=== PATIENT | female | born 1960 | race Caucasian/White ===

== ENCOUNTER 2019-02-10 16:52 | Observation (INO) | payer SELFPAY ==
[~2019-02-10] VITALS: Ht 165.1 cm; Wt 58.5 kg
[2019-02-10] MEDS ORDERED: ASPIRIN 81 MG CHEW TAB PO ONE (17:30)
--- NOTE | 2019-02-10 17:44 | Diagnostic Imaging Report ---
Exam: Head CT without contrast Indication: Right-sided weakness Comparisons: None Technique: Axial images were obtained from the skull base to the vertex. Coronal and sagittal images reconstructed from the axial data. Dose modulation, iterative reconstruction, and/or weight based adjustment of the mA/kV was utilized to reduce the radiation dose to as low as reasonably achievable. Intravenous contrast: None Findings: Scalp/skull: No abnormalities. Extra-axial spaces: No masses. No fluid collections. Brain sulci: Not effaced. Ventricles: Focally dilated left frontal horn. Otherwise, normal size and configuration. Parenchyma: Focal hypodensity involving involving the left subinsular region, lentiform nucleus, and frontal doty radiata. No intracranial hemorrhage. Sellar/suprasellar region: No abnormalities. Craniocervical junction: Patent foramen magnum. No Chiari one malformation. Incidental findings: Atherosclerotic calcifications in the carotid siphons . Suspect sequela of prior left mastoidectomy. Impression: 1. No intracranial hemorrhage, evidence of acute territorial vascular insult, or hydrocephalus. 2. 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 A preliminary report was provided by Dr. Lee on 02/10/2019 5:39 PM. Signed by: Meng Lee MD on 02/10/2019 5:40 PM
[2019-02-10 17:53] LABS: BASOPHILS # (AUTO) 0.1 (0.0-0.1); BASOPHILS % 0.7 % (0.0-1.0); EOSINOPHILS # (AUTO) 0.2 (0.0-0.4); EOSINOPHILS % 1.9 % (0.0-6.0); HEMATOCRIT 42.9 % (34.2-44.1); HEMOGLOBIN 14.3 g/dL (12.0-16.0); LYMPHOCYTES # (AUTO) 3.4 (1.0-3.2); LYMPHOCYTES % 37.5 % (18.0-39.1); MEAN CORPUSCULAR HEMOGLOBIN 32.1 pg (28-32); MEAN CORPUSCULAR HGB CONC 33.3 g/dL (31-35); MEAN CORPUSCULAR VOLUME 96.4 fL (81-99); MONOCYTES # (AUTO) 0.7 (0.2-0.8); MONOCYTES % 7.2 % (4.4-11.3); NEUTROPHILS # (AUTO) 4.8 (2.1-6.9); PLATELET COUNT 293 x10e3/uL (140-360); RED BLOOD COUNT 4.45 x10e6/uL (3.6-5.1); RED CELL DISTRIBUTION WIDTH 13.3 % (11.7-14.4)
[2019-02-10 17:58] LABS: INR 0.88; PROTHROMBIN TIME 12.4 seconds (11.9-14.5)
[2019-02-10] MEDS ORDERED: SODIUM CHLORIDE 0.9% 1000ML 1,000 ML IV SCH (18:00)
[2019-02-10] MEDS ORDERED: LORAZEPAM INJ 2 MG/ML VIAL IV ONE (18:00)
[2019-02-10 18:05] LABS: ALANINE AMINOTRANSFERASE 10 IU/L (0-55); ALBUMIN 3.9 g/dL (3.5-5.0); ALBUMIN/GLOBULIN RATIO 1.1 (0.8-2.0); ALKALINE PHOSPHATASE 52 IU/L (40-150); ANION GAP 12.9 mmol/L (8-16); BLOOD UREA NITROGEN 13 mg/dL (7-26); BUN/CREATININE RATIO 15 (6-25); CALCIUM 10.1 mg/dL (8.4-10.2); CARBON DIOXIDE 25 mmol/L (22-29); CHLORIDE 102 mmol/L (98-107); CREATININE, SERUM 0.85 mg/dL (0.57-1.11); EST GLOMERULAR FILTRATION RATE > 60 ML/MIN (60-); GLUCOSE 117 mg/dL (74-118); POTASSIUM 3.9 mmol/L (3.5-5.1); SODIUM 136 mmol/L (136-145)
[2019-02-10 18:08] LABS: CREATINE KINASE 46 IU/L (29-168)
[2019-02-10] MEDS ORDERED: HYDRALAZINE HCL 20 MG/ML VIAL IV PRN (20:00)
[2019-02-10] MEDS ORDERED: ONDANSETRON HCL INJ 2MG/ML 2ML 2 MG/ML VIAL IV PRN (20:00)
--- OUTSIDE RECORDS SUMMARY | 2019-02-10 20:28 | XMS REPORT | Summary of Care ---
Author Author [facility] Address Unknown Phone Unavailable Encounter [facility] Encntr_zuhair(FIN) [id number] Date(s): 07/16/17 - 08/14/17 [facility] Discharge Disposition: Home or Self Care Attending Physician: Umesh Basurto MD Vital Signs No data available for this section Problem List Condition Effective Dates Status Health Status Informant HTN - Active Hypertension(Confirm ed) Hyperlipidemia(Confi Resolved rmed) MD - Myocardial Resolved infarction(Confirmed ) TIA(Confirmed) Resolved Allergies, Adverse Reactions, Alerts Substance Reaction Severity Status Ativan Active Phenergan Active Medications No data available for this section Results No data available for this section Immunizations No data available for this section Procedures Procedure Date Related Diagnosis Body Site section Cholecystectomy Hysterectomy1 Stent placement Tonsillectomy 1complete per pt Social History Social History Type Response Alcohol Current, Type Beer, Wine. Frequency: 1-2 times per week. Alcohol use interferes with work or home: No. Drinks more than intended: No. Others hurt by drinking: No. Ready to change: No. Household alcohol concerns: No. Smoking Status Current every day smoker; Type: Cigarettes; Previous treatment: None; Ready to change: No; Concerns about tobacco use in household: No; Lives with someone who smokes; Cigarette Smoking Last 365 Days Yes; Reg Smoking Cessation Counseling Yes Assessment and Plan No data available for this section
--- OUTSIDE RECORDS SUMMARY | 2019-02-10 20:28 | XMS REPORT | Continuity of Care Document ---
Author Author [facility] Interface Address Unknown Phone Unavailable Problems Problem Status Onset Date Classification Date Reported Comments Source NECK PAIN Active 07/12/2017 [facility] [place] DX: R20.0=ANESTHESIA OF SKIN Active 01/29/2017 [facility] CHEST PAIN Active 11/30/2015 [facility] Discharge Diagnosis: Pain, dental 07/11/2014 07/13/2014 [facility] TOOTH ACHE Active 07/11/2014 [facility] NON STEMI Active 05/14/2014 [facility] ARM INJURY Active 03/20/2013 [facility] ABDOMINAL LUMP Active 03/20/2013 [facility] HTN - Hypertension Active Problem 08/17/2017 [facility] [place] Hyperlipidemia Resolved Problem 08/17/2017 [facility] [place] [place] - Myocardial infarction Resolved Problem 08/17/2017 [facility] [place] TIA Resolved Problem 08/17/2017 [facility] [place] Mixed hyperlipidemia Active Problem 12/31/2017 [facility] Coronary atherosclerosis of [place] coronary artery Active Problem 12/31/2017 [facility] Essential hypertension Active Diagnosis 12/31/2017 [facility] Normal body mass index Active Problem 12/31/2017 [facility] History of CVA Active Problem 06/19/2017 [facility] Tobacco use Active Problem 12/31/2017 [facility],Gary Dee [place], [place] Transient cerebral ischemia Active Problem 06/19/2017 [facility] Vitamin D deficiency Active Problem 12/31/2017 [facility] History of [place] Active Problem 06/19/2017 [facility] Smoker Active Problem 12/31/2017 [facility] Grade III hemorrhoids Active Problem 06/19/2017 [facility] Diverticulitis of large intestine without perforation or abscess without bleeding Active Problem 06/19/2017 [facility] Neck pain Active Diagnosis 06/13/2017 [facility] Diverticulitis Active Problem 05/07/2015 [facility] Grade III hemorrhoids Active Problem 05/07/2015 [facility] Vitamin d deficiency Active Problem 05/07/2015 [facility] CAD Active Problem 05/07/2015 [facility] Elevated CEA Active Problem 05/07/2015 [facility] CVA Active Problem 05/07/2015 [facility] Nicotine addiction /use ) Active Problem 05/07/2015 [facility] HTN Active Problem 05/07/2015 [facility] Hyperlipidemia Active Problem 05/07/2015 [facility] HTN , benign Active Problem 11/29/2016 [facility] Menopausal state Active Problem 12/31/2017 [facility] Hyperglycemia Active Problem 12/31/2017 [facility] Physical exam Active Diagnosis 12/27/2017 [facility] Dense breast Active Diagnosis 12/27/2017 [facility] Osteopenia of spine Active Diagnosis 12/27/2017 [facility] BMI 21.0-21.9, adult Active Diagnosis 12/27/2017 [facility] Breast cancer screening Active Diagnosis 12/27/2017 [facility] Cataract of left eye, unspecified cataract type Active Diagnosis 12/27/2017 [facility] TIA Active Problem 05/07/2015 [facility] Consumes alcohol weekly Active Diagnosis 05/07/2015 [facility] Hospital discharge follow-up Active Diagnosis 05/07/2015 [facility] Bronchitis Active Diagnosis 10/04/2013 [facility] Encounter for tobacco use cessation counseling Active Diagnosis 12/10/2015 [facility] Breast pain Active Diagnosis 08/21/2013 [facility] Costochondritis Active Diagnosis 08/21/2013 [facility] Numbness in left leg Active Diagnosis 01/31/2017 [facility] Chest pressure Active Diagnosis 01/31/2017 [facility] CAD without angina Active Diagnosis 03/30/2016 [place] [facility], [place] Bruit Active Diagnosis 03/30/2016 Gary Dee MD, [place] Chest pain, unspecified Active Diagnosis 03/30/2016 [place] Dee MD, [place] Peripheral vascular disease, unspecified Active Diagnosis 03/30/2016 Gary Dee MD, [place] PCI status Active Diagnosis 03/30/2016 Gary Dee MD, [place] Pure hypercholesterolemia Active Diagnosis 03/30/2016 Gary Dee MD, PA AMI NOS-EPISODE NOS Active [facility] CHEST PAIN, UNSPECIFIED Active [facility] Medications Medication Details Route Status Patient Instructions Ordering Provider Order Date Source Metoprolol Succinate 1 tablet Orally Active 100 mg Orally once daily [facility] 06/13/2017 [facility] Cyclobenzaprine HCl 1 tablet as needed Orally Active 10 MG Orally one before bedtime daily [place] 06/11/2017 [facility] Naproxen 1 tablet Orally Active 375 MG Orally Twice a day [place] 06/11/2017 [facility] Chantix Starting Month Mark as directed Orally Active 0.5 MG X 11 & 1 MG X 42 Orally as directed [place] 12/08/2015 [facility] Plavix 75 mg, 1 tab, Route: PO, Drug form: TAB, Daily, Dosing Weight 65.114, kg, Start date: 12/02/15 9:00:00, Duration: 30 day, Stop date: 12/31/15 9:00:00Notes: (Same As: Plavix) No Longer Active 12/02/2015 [facility] Atenolol 25 MG Oral Tablet 25 mg, 1 tab, Route: PO, Drug form: TAB, Daily, Dosing Weight 65.114, kg, Start date: 12/02/15 9:00:00, Duration: 30 day, Stop date: 12/31/15 9:00:00Notes: (Same As:Tenormin) No Longer Active 12/02/2015 [facility] Lipitor 40 mg, 1 tab, Route: PO, Drug form: TAB, Bedtime, Dosing Weight 65.114, kg, Start date: 12/01/15 21:00:00, Duration: 30 day, Stop date: 12/30/15 21:00:00Notes: (Same as: Lipitor) Inactive 12/02/2015 [facility] atorvastatin 40 MG Oral Tablet [Lipitor] 40 mg=1 tab, PO, Bedtime, 0 Refill(s) Active 12/01/2015 [facility] Atenolol 50 mg, PO, BID, 0 Refill(s) Active 12/01/2015 [facility] Simvastatin PO, Bedtime, 0 Refill(s) Inactive 12/01/2015 [facility] clopidogrel 75 MG Oral Tablet [Plavix] 75 mg=1 tab, PO, Daily, # 30 tab, 0 Refill(s) Active 12/01/2015 [facility] Saline Flush 0.9% 10 ml, Route: IVP, Drug Form: INJ, Dosing Weight 59.091, kg, Q12H, Start date: 11/30/15 21:00:00, Duration: 30 day, Stop date: 12/30/15 9:00:00Notes: (Same as: BD Posiflush) No Longer Active 12/01/2015 [facility] Saline Flush 0.9% 10 ml, Route: IVP, Drug Form: INJ, Dosing Weight 59.091, kg, PRN, PRN Line Flush, Start date: 11/30/15 18:50:00, Duration: 30 day, Stop date: 12/30/15 18:49:00Notes: (Same as: BD Posiflush) No Longer Active 12/01/2015 [facility] Nitroglycerin 0.4 mg, 1 tab, Route: SL, Drug form: TAB, Q5Min, Dosing Weight 59.091, kg, PRN Chest Pain, Start date: 11/30/15 18:50:00, Duration: 3 doses or times, Stop date: Limited # of timesNotes: (Same as:Nitr oquick, Nitrostat) "Do Not Crush" Sublingual tablet No Longer Active 12/01/2015 [facility] Aspirin 325 MG Oral Tablet 325 mg, 1 tab, Route: PO, Drug form: TAB, ONCE, Dosing Weight 59.091, kg, Start date: 11/30/15 18:50:00, Stop date: 11/30/15 18:50:00Notes: Take with food. Inactive 12/01/2015 [facility] Acetaminophen 325 MG / Hydrocodone Bitartrate 5 MG Oral Tablet [[place] 5/325] 1-2 tab, PO, Q4-6H, Pain, # 10 tab, 0 Refill(s) Active 07/11/2014 [facility] Penicillin V Potassium 500 MG Oral Tablet 500 mg=1 tab, PO, Q6H, # 40 tab, 0 Refill(s) Active 07/11/2014 [facility] Nitroglycerin 0.4 MG Sublingual Tablet [Nitrostat] 0.4 mg=1 tab, SL, Q5Min, Chest Pain, # 100 tab, 0 Refill(s) Active 05/16/2014 [facility] simvastatin 20 mg oral tablet 20 mg=1 tab, PO, Bedtime, # 30 tab, 0 Refill(s) Active 05/16/2014 [facility] metoprolol tartrate 25 mg oral tablet 25 mg=1 tab, PO, BID, # 60 tab, 0 Refill(s) Active 05/16/2014 [facility] clopidogrel 75 mg oral tablet 75 mg=1 tab, PO, Daily, # 30 tab, 0 Refill(s) Active 05/16/2014 [facility] aspirin 325 mg tablet 325 mg=1 tab, PO, Daily, # 30 tab, 0 Refill(s) Active 05/16/2014 [facility] Plavix 75 mg, 1 tab, Route: PO, Drug form: TAB, Daily, Dosing Weight 59.091, kg, Start date: 05/15/14 9:00:00, Duration: 30 day, Stop date: 06/13/14 9:00:00Notes: (Same As: Plavix) No Longer Active 05/15/2014 [facility] aspirin 325 mg tablet 325 mg, 1 tab, Route: PO, Drug form: TAB, Daily, Dosing Weight 59.091, kg, Start date: 05/15/14 9:00:00, Duration: 30 day, Stop date: 06/13/14 9:00:00Notes: Take with food. No Longer Active 05/15/2014 [facility] clopidogrel 75 mg, Route: PO, Drug form: TAB, Daily, Dosing Weight 61.364, kg, Start date: 05/15/14 9:00:00, Duration: 30 day, Stop date: 06/13/14 9:00:00 No Longer Active 05/15/2014 [facility] Lisinopril 5 mg, 1 tab, Route: PO, Drug form: TAB, Daily, Dosing Weight 61.364, kg, Start date: 05/15/14 9:00:00, Duration: 30 day, Stop date: 06/13/14 9:00:00Notes: (Same as: Prinivil, Zestril) No Longer Active 05/15/2014 [facility] metoprolol tartrate 25 mg, Route: PO, Drug form: TAB, Q12H, Dosing Weight 61.364, kg, Start date: 05/14/14 21:00:00, Duration: 30 day, Stop date: 06/13/14 9:00:00 Inactive 05/15/2014 [facility] Crestor 10 mg, 1 tab, Route: PO, Drug form: TAB, Bedtime, Dosing Weight 59.091, kg, Start date: 05/14/14 21:00:00, Duration: 30 day, Stop date: 06/12/14 21:00:00Notes: (Same As: Crestor) No Longer Active 05/15/2014 [facility] Saline Flush 0.9% 5 ml, Route: IVP, Drug Form: INJ, Dosing Weight 61.364, kg, Q12H, Start date: 05/14/14 21:00:00, Duration: 30 day, Stop date: 06/13/14 9:00:00 Inactive 05/15/2014 [facility] Ambien 5 mg, 1 tab, Route: PO, Drug form: TAB, Bedtime, Dosing Weight 61.364, kg, PRN Insomnia, Start date: 05/14/14 18:37:00, Duration: 30 day, Stop date: 06/13/14 18:36:00Notes: (Same As: Ambien) No Longer Active 05/14/2014 [facility] Saline Flush 0.9% 5 ml, Route: IVP, Drug Form: INJ, Dosing Weight 61.364, kg, PRN, PRN Line Flush, Start date: 05/14/14 18:27:00, Duration: 30 day, Stop date: 06/13/14 18:26:00 Inactive 05/14/2014 [facility] clopidogrel 300 mg, Route: PO, Drug form: TAB, ONCE, Dosing Weight 61.364, kg, Priority: NOW, Start date: 05/14/14 18:27:00, Stop date: 05/14/14 18:27:00 Inactive 05/14/2014 [facility] Morphine 2 mg, 1 mL, Route: IVP, Drug form: INJ, Q15Min, Dosing Weight 61.364, kg, PRN Chest Pain, Start date: 05/14/14 18:27:00, Duration: 2 doses or times, Stop date: Limited # of timesNotes: (Same as:MORPh ine Sulfate) No Longer Active 05/14/2014 [facility] Nitroglycerin 0.4 mg, Route: SL, Drug form: TAB, Q5Min, Dosing Weight 61.364, kg, PRN Chest Pain, Start date: 05/14/14 18:27:00, Duration: 3 doses or times, Stop date: Limited # of times Inactive 05/14/2014 [facility] atropine 0.5 mg, 5 mL, Route: IVP, Drug form: INJ, PRN, PRN Bradycardia, Start date: 05/14/14 15:39:00, Duration: 30 day, Stop date: 06/13/14 15:38:00 No Longer Active 05/14/2014 [facility] eptifibatide 10.6364 mg, 5.32 mL, Route: IV, Drug form: INJ, ONCE, Start date: 05/14/14 11:01:00, Stop date: 05/14/14 11:01:00Notes: (Same as: Integrelin) Inactive 05/14/2014 [facility] eptifibatide 75 mg [2 microgram/kg/min] IV, 9.45 ml/hr, Start date: 05/14/14 11:00:00, Duration: 72, 100 ml, 59.091Notes: (Same as: Integrelin) Final conc=0.75 mg/mL - Premix Bottle No Longer Active 05/14/2014 [facility] eptifibatide 0.75 MG/ML Injectable Solution [Integrilin] 75 mg, 100 mL, Rate: Titrate, Dosing Weight 59.091, kg, Route: IV, Total Volume: 100 mL, Start date: 05/14/14 10:53:00, Duration: 72 hr, Stop date: 05/17/14 10:52:00, Replace Every: 24 hr Inactive 05/14/2014 [facility] Saline Flush 0.9% 5 ml, Route: IVP, Drug Form: INJ, Dosing Weight 59.091, kg, Q12H, Start date: 05/14/14 9:00:00, Duration: 30 day, Stop date: 06/12/14 21:00:00Notes: (Same as: BD Posiflush) No Longer Active 05/14/2014 [facility] metoprolol tartrate 25 mg, 1 tab, Route: PO, Drug form: TAB, Q12H, Dosing Weight 59.091, kg, Start date: 05/14/14 9:00:00, Duration: 30 day, Stop date: 06/12/14 21:00:00Notes: (Same as: Lopressor) No Longer Active 05/14/2014 [facility] Saline Flush 0.9% 5 ml, Route: IVP, Drug Form: INJ, Dosing Weight 59.091, kg, PRN, PRN Line Flush, Start date: 05/14/14 8:52:00, Duration: 30 day, Stop date: 06/13/14 8:51:00Notes: (Same as: BD Posiflush) No Longer Active 05/14/2014 [facility] Morphine 2 mg, 1 mL, Route: IVP, Drug form: INJ, Q4H, Dosing Weight 59.091, kg, PRN Chest Pain, Start date: 05/14/14 8:40:00, Duration: 30 day, Stop date: 06/13/14 8:39:00Notes: (Same as:MORPhine Sulfate) No Longer Active 05/14/2014 [facility] Plavix 600 mg, 2 tab, Route: PO, Drug form: TAB, ONCE, Dosing Weight 59.091, kg, Start date: 05/14/14 8:37:00, Duration: 1 doses or times, Stop date: 05/14/14 8:37:00Notes: ( Same as: Plavix) Inactive 05/14/2014 [facility] Aspirin 325 MG Enteric Coated Tablet 325 mg, 1 tab, Route: PO, Drug form: ECTAB, Q24H, Dosing Weight 61.364, kg, Start date: 05/14/14 6:00:00, Duration: 30 day, Stop date: 06/12/14 6:00:00Notes: (Do Not Crush) Do not crush or chew. Inactive 05/14/2014 [facility] Saline Flush 0.9% 5 ml, Route: IVP, Drug Form: INJ, Dosing Weight 61.364, kg, PRN, PRN Line Flush, Start date: 05/14/14 5:11:00, Duration: 30 day, Stop date: 06/13/14 5:10:00Notes: Same as: BD Posiflush Sterile No Longer Active 05/14/2014 [facility] Nitroglycerin 0.4 mg, 1 tab, Route: SL, Drug form: TAB, Q5Min, Dosing Weight 61.364, kg, PRN Chest Pain, Start date: 05/14/14 5:11:00, Duration: 3 doses or times, Stop date: Limited # of timesNotes: (Same as:Nitro quick, Nitrostat) "Do Not Crush" Sublingual tablet No Longer Active 05/14/2014 [facility] Lovenox 60 mg, 0.6 mL, Route: SUB-Q, Drug form: INJ, ONCE, Dosing Weight 61.364, kg, Priority: STAT, Start date: 05/14/14 3:32:00, Stop date: 05/14/14 3:32:00Notes: Nurse to ensure documentation of patient education per anticoagulation policy. (Same as: Lovenox) Inactive 05/14/2014 [facility] Nitroglycerin 100 mg, 250 mL, Rate: Titrate as Directed, Dosing Weight 61.364, kg, Route: IV, Total Volume: 250 mL, Start date: 05/14/14 2:31:00, Duration: 30 day, Stop date: 06/13/14 2:30:00, Replace Every: 24 hrNot es: (Same as:Tridil) Final conc=0.4 mg/ml. Premix bottle. No Longer Active 05/14/2014 [facility] Morphine 2 mg, Route: IVP, ONCE, Dosing Weight 61.364, kg, Priority: STAT, Start date: 05/14/14 2:31:00, Stop date: 05/14/14 2:31:00 Inactive 05/14/2014 [facility] Morphine 2 mg, Route: IVP, ONCE, Dosing Weight 61.364, kg, Priority: STAT, Start date: 05/14/14 1:00:00, Stop date: 05/14/14 1:00:00 Inactive 05/14/2014 [facility] Bromfed DM 10 ml as needed Orally Active 30-2-10 MG/5ML Orally every 6 hrs [place] 10/02/2013 [facility] Levaquin 1 tablet Orally Active 500 MG Orally Once a day [facility] 10/02/2013 [facility] DexPak 6 Day as directed Orally Active 1.5 MG Orally as directed [facility] 10/02/2013 [facility] Naprosyn 1 tablet as needed Orally Active 500 mg Orally every [address] [facility] 08/05/2013 [facility] Estradiol 1 tablet Orally Active 1 MG Orally daily [facility] 07/09/2013 [facility] Estratest 1 tablet with food Orally No Longer Active 1.25-2.5 MG Orally Daily for Three Weeks, 1 Week off [place] 06/18/2013 [facility] Zetia 1 tablet Orally No Longer Active 10 mg Orally Once a day [facility] 06/18/2013 [facility] Lipitor 1 tablet Orally No Longer Active 80 mg Orally Once a day [facility] 02/28/2013 [facility] Vitamin D as directed Orally Active 73040 U Orally once per week [facility] 02/28/2013 [facility] Tenormin 1 tablet Orally Active 50 mg Orally twice a day (bid) [place] 02/03/2013 [facility] Tenormin 1 tablet Orally Active 50 mg Orally twice a day (bid) [place] 02/03/2013 [facility] Plavix 1 tablet Orally Active 75 MG Orally once a day [facility],Gary Dee [place], [place] Nitroglycerin not defined Sublingual Active 0.4 MG Sublingual [facility],Gary Dee [place], [place] Plavix 1 tablet Orally Active 75 MG Orally once a day [facility] Nitroglycerin not defined Sublingual Active 0.4 MG Sublingual [facility] Metoprolol Tartrate 5 ml Intravenous Active 5 MG/5ML Intravenous every 12 hrs [facility] Atenolol 1 tablet Orally Active 50 mg Orally twice a day (bid) Taty Dee MD, [place] Lipitor 1 tablet Orally Active 80 MG Orally Once a day Taty Dee MD, [place] Aspirin 1 tablet Orally Active 81 MG Orally Once a day Taty Dee MD, [place] Allergies, Adverse Reactions, Alerts Substance Category Reaction Severity Reaction type Status Date Reported Comments Source Ativan Adverse Reaction Info Not Available Adverse Reaction Active 12/28/2017 [facility] Phenergan Assertion Drug allergy Active [facility] [place] Immunizations Immunization Date Given Site Status Last Updated Comments Source Results Order Name Results Value Reference Range Date Interpretation Comments Source Brain wo contrast MRI Brain wo contrast MRI Brain wo contrast MRI CLINICAL INDICATION: R20 Disturbances of skin sensation - Pt. had previous h/o stroke. she felt her leg leg went numb the day before yesterday and since then she said she doesn;t feel it normal and kind of weak. COMPARISON: CT head 03/20/2011 TECHNIQUE: Multiplanar imaging of the brain was performed without IV contrast. 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 No areas of restricted diffusion are visualized to suggest an acute infarct. Mild increase in signal in the periventricular white matter is likely related to chronic ischemic change from small vessel disease. There is no space-occupying lesion, mass effect or midline shift. No extra-axial fluid collection or intraparenchymal hemorrhage. No CP angle mass is visualized. IACs, brainstem and craniocervical junction are unremarkable. VENTRICLES: There is mild dilation of ventricles and subarachnoid spaces but not out of proportion to the underlying cerebral atrophy. VISUALIZED VESSELS: The expected intracranial flow voids are present. SELLA, SKULL BASE AND ORBITS: The visualized orbits and optic chiasm are unremarkable. Partially empty sella is noted. PARANASAL SINUSES AND MASTOIDS: The visualized paranasal sinuses are clear. There is fluid in right mastoid air cells. 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 Mild chronic white matter ischemic change is likely related to small vessel disease. Mild cerebral atrophy. Right mastoid air cell disease. No other significant abnormality is noted on the non-IV contrast MRI of the brain. SL: [id number] 01/30/2017 - - Read by: Trevor Brunner MD Dictated Date/time: 01/30/17 11:50 Electronically Signed by: Trevor Brunner MD 01/30/17 11:57 FINAL REPORT [facility] CARDIAC ENZYMES Total CK 64 unit/L 12 - 191 12/01/2015 [facility] CARDIAC ENZYMES Troponin-I null 0.00 - 0.40 12/01/2015 [facility] CARDIAC ENZYMES Troponin-I null 0.00 - 0.40 12/01/2015 [facility] CARDIAC ENZYMES Total CK 60 unit/L 12 - 191 12/01/2015 [facility] CHEM PANEL Glucose Lvl 129 mg/dL 70 - 99 12/01/2015 [facility] CHEM PANEL Sodium Lvl 141 meq/L 135 - 145 12/01/2015 [facility] CHEM PANEL BUN 15 mg/dL 7 - 22 12/01/2015 [facility] CHEM PANEL CO2 28 meq/L 24 - 32 12/01/2015 [facility] CHEM PANEL Potassium Lvl 3.8 meq/L 3.5 - 5.1 12/01/2015 [facility] CHEM PANEL Calcium Lvl 8.5 mg/dL 8.5 - 10.5 12/01/2015 [facility] CHEM PANEL Chloride Lvl 108 meq/L 95 - 109 12/01/2015 [facility] CHEM PANEL eGFR 81 mL/min/1.73m2 12/01/2015 Result Comment: The eGFR is calculated using the CKD-EPI formula. In most young, healthy individuals the eGFR will be >90 mL/min/1.73m2. The eGFR declines with age. An eGFR of 60-89 may be normal in some populations, particularly the elderly, for whom the CKD-EPI formula has not been extensively validated. Use of the eGFR is not recommended in the following populations: Individuals with unstable creatinine concentrations, including patients and those with serious co-morbid conditions. Patients with extremes in muscle mass or diet. The data above are obtained from the National Kidney Disease Education Program (NKDEP) which additionally recommends that when the eGFR is used in patients with extremes of body mass index for purposes of drug dosing, the eGFR should be multiplied by the estimated BMI. [facility] CHEM PANEL Creatinine Lvl 0.81 mg/dL 0.50 - 1.40 12/01/2015 [facility] CHEM PANEL AGAP 8.8 meq/L 10.0 - 20.0 12/01/2015 [facility] HEMATOLOGY PTT 29.4 s 22.9 - 35.8 12/01/2015 [facility] HEMATOLOGY PT 14.2 s 12.0 - 14.7 12/01/2015 [facility] HEMATOLOGY INR 1.07 0.85 - 1.17 12/01/2015 [facility] HEMATOLOGY WBC 7.1 K/CMM 3.7 - 10.4 12/01/2015 [facility] HEMATOLOGY RBC 4.05 M/CMM 4.20 - 5.40 12/01/2015 [facility] HEMATOLOGY Hct 38.9 % 36.0 - 48.0 12/01/2015 [facility] HEMATOLOGY Hgb 12.7 g/dL 12.0 - 16.0 12/01/2015 [facility] HEMATOLOGY MCV 96.2 fL 80.0 - 98.0 12/01/2015 [facility] HEMATOLOGY MCHC 32.7 g/dL 32.0 - 36.0 12/01/2015 [facility] HEMATOLOGY MCH 31.4 pg 27.0 - 31.0 12/01/2015 [facility] HEMATOLOGY MPV 8.9 fL 7.4 - 10.4 12/01/2015 [facility] HEMATOLOGY Platelet 201 K/CMM 133 - 450 12/01/2015 [facility] HEMATOLOGY RDW 13.2 % 11.5 - 14.5 12/01/2015 [facility] HEMATOLOGY Segs-Bands # 3.4 K/CMM 1.5 - 8.1 12/01/2015 [facility] HEMATOLOGY Lymphocytes # 2.7 K/CMM 1.0 - 5.5 12/01/2015 [facility] HEMATOLOGY Eosinophils 3.3 % 0.0 - 4.0 12/01/2015 [facility] HEMATOLOGY Basophils 0.8 % 0.0 - 1.0 12/01/2015 [facility] HEMATOLOGY Monocytes # 0.7 K/CMM 0.0 - 0.8 12/01/2015 [facility] HEMATOLOGY Eosinophils # 0.2 K/CMM 0.0 - 0.5 12/01/2015 [facility] HEMATOLOGY Basophils # 0.1 K/CMM 0.0 - 0.2 12/01/2015 [facility] HEMATOLOGY Monocytes 10.2 % 2.0 - 12.0 12/01/2015 [facility] HEMATOLOGY Lymphocytes 37.9 % 20.0 - 40.0 12/01/2015 [facility] HEMATOLOGY Segs 47.8 % 45.0 - 75.0 12/01/2015 [facility] LIPIDS VLDL 16 12/01/2015 [facility] LIPIDS LDL (Calculated) 173 mg/dL <=99 mg/dL 12/01/2015 [facility] LIPIDS Trig 78 mg/dL <=149 mg/dL 12/01/2015 [facility] LIPIDS HDL 58 mg/dL >=61 mg/dL 12/01/2015 [facility] LIPIDS Chol 247 mg/dL <=199 mg/dL 12/01/2015 [facility] LIPIDS CHD Risk 4.26 3.90 - 5.80 12/01/2015 [facility] CHEM PANEL eGFR 83 mL/min/1.73m2 05/15/2014 1Result Comment: The eGFR is calculated using the CKD-EPI formula. In most young, healthy individuals the eGFR will be >90 mL/min/1.73m2. The eGFR declines with age. An eGFR of 60-89 may be normal in some populations, particularly the elderly, for whom the CKD-EPI formula has not been extensively validated. Use of the eGFR is not recommended in the following populations: Individuals with unstable creatinine concentrations, including patients and those with serious co-morbid conditions. Patients with extremes in muscle mass or diet. The data above are obtained from the National Kidney Disease Education Program (NKDEP) which additionally recommends that when the eGFR is used in patients with extremes of body mass index for purposes of drug dosing, the eGFR should be multiplied by the estimated BMI. [facility] CHEM PANEL CO2 25 meq/L 24 - 32 05/15/2014 [facility] CHEM PANEL Calcium Lvl 8.6 mg/dL 8.5 - 10.5 05/15/2014 [facility] CHEM PANEL BUN 9 mg/dL 7 - 22 05/15/2014 [facility] CHEM PANEL Creatinine Lvl 0.8 mg/dL 0.5 - 1.4 05/15/2014 [facility] CHEM PANEL Glucose Lvl 134 mg/dL 70 - 99 05/15/2014 4Interpretive Data: Adult reference range values reflect the clinical guidelines of the [place] [employer]. [facility] CHEM PANEL Chloride Lvl 106 meq/L 95 - 109 05/15/2014 [facility] CHEM PANEL Potassium Lvl 4.2 meq/L 3.5 - 5.1 05/15/2014 [facility] CHEM PANEL Sodium Lvl 139 meq/L 135 - 145 05/15/2014 [facility] CHEM PANEL AGAP 12.2 meq/L 10.0 - 20.0 05/15/2014 [facility] HEMATOLOGY Eosinophils # 0.1 K/CMM 0.0 - 0.5 05/15/2014 [facility] HEMATOLOGY Monocytes # 0.8 K/CMM 0.0 - 0.8 05/15/2014 [facility] HEMATOLOGY Basophils # 0.1 K/CMM 0.0 - 0.2 05/15/2014 [facility] HEMATOLOGY Basophils 1.0 % 0.0 - 1.0 05/15/2014 [facility] HEMATOLOGY Lymphocytes # 1.8 K/CMM 1.0 - 5.5 05/15/2014 [facility] HEMATOLOGY Segs-Bands # 5.6 K/CMM 1.5 - 8.1 05/15/2014 [facility] Lymphocytes 22.0 % 20.0 - 40.0 05/15/2014 [facility] HEMATOLOGY Monocytes 9.0 % 2.0 - 12.0 05/15/2014 [facility] Eosinophils 0.8 % 0.0 - 4.0 05/15/2014 [facility] Segs 67.2 % 45.0 - 75.0 05/15/2014 [facility] Platelet 155 K/CMM 133 - 450 05/15/2014 [facility] MPV 9.5 fL 7.4 - 10.4 05/15/2014 [facility] MCHC 33.5 g/dL 32.0 - 36.0 05/15/2014 [facility] RDW 14.0 % 11.5 - 14.5 05/15/2014 [facility] MCH 32.4 pg 27.0 - 31.0 05/15/2014 [facility] Hct 39.0 % 36.0 - 48.0 05/15/2014 [facility] RBC 4.02 M/CMM 4.20 - 5.40 05/15/2014 [facility] Hgb 13.1 g/dL 12.0 - 16.0 05/15/2014 [facility] MCV 97.0 fL 81.0 - 99.0 05/15/2014 [facility] WBC 8.3 K/CMM 3.7 - 10.4 05/15/2014 [facility] CARDIAC ENZYMES Troponin-I 11.50 ng/mL 0.00 - 0.40 05/15/2014 7Result Comment: Critical Result(s) called to Hermilo Padgett at 05/15/2014 01:49 by AD. Read back OK. [facility] ELECTROLYTES AGAP 9.3 meq/L 10.0 - 20.0 05/15/2014 [facility] ELECTROLYTES eGFR 83 mL/min/1.73m2 05/15/2014 2Result Comment: The eGFR is calculated using the CKD-EPI formula. In most young, healthy individuals the eGFR will be >90 mL/min/1.73m2. The eGFR declines with age. An eGFR of 60-89 may be normal in some populations, particularly the elderly, for whom the CKD-EPI formula has not been extensively validated. Use of the eGFR is not recommended in the following populations: Individuals with unstable creatinine concentrations, including patients and those with serious co-morbid conditions. Patients with extremes in muscle mass or diet. The data above are obtained from the National Kidney Disease Education Program (NKDEP) which additionally recommends that when the eGFR is used in patients with extremes of body mass index for purposes of drug dosing, the eGFR should be multiplied by the estimated BMI. [facility] ELECTROLYTES Potassium Lvl 3.3 meq/L 3.5 - 5.1 05/15/2014 [facility] ELECTROLYTES Glucose Lvl 114 mg/dL 70 - 99 05/15/2014 5Interpretive Data: Adult reference range values reflect the clinical guidelines of the [place] [employer]. [facility] ELECTROLYTES Sodium Lvl 138 meq/L 135 - 145 05/15/2014 [facility] ELECTROLYTES Creatinine Lvl 0.8 mg/dL 0.5 - 1.4 05/15/2014 [facility] ELECTROLYTES BUN 12 mg/dL 7 - 22 05/15/2014 [facility] ELECTROLYTES Chloride Lvl 105 meq/L 95 - 109 05/15/2014 [facility] ELECTROLYTES Calcium Lvl 8.5 mg/dL 8.5 - 10.5 05/15/2014 [facility] ELECTROLYTES CO2 27 meq/L 24 - 32 05/15/2014 [facility] HEMATOLOGY Eosinophils # 0.1 K/CMM 0.0 - 0.5 05/15/2014 [facility] HEMATOLOGY Segs-Bands # 4.5 K/CMM 1.5 - 8.1 05/15/2014 [facility] Lymphocytes # 2.9 K/CMM 1.0 - 5.5 05/15/2014 [facility] HEMATOLOGY Monocytes # 0.6 K/CMM 0.0 - 0.8 05/15/2014 [facility] Lymphocytes 35.6 % 20.0 - 40.0 05/15/2014 [facility] HEMATOLOGY Monocytes 7.8 % 2.0 - 12.0 05/15/2014 [facility] HEMATOLOGY Eosinophils 1.1 % 0.0 - 4.0 05/15/2014 [facility] HEMATOLOGY Basophils 0.4 % 0.0 - 1.0 05/15/2014 [facility] HEMATOLOGY Segs 55.1 % 45.0 - 75.0 05/15/2014 [facility] Hgb 12.5 g/dL 12.0 - 16.0 05/15/2014 [facility] HEMATOLOGY RBC 3.82 M/CMM 4.20 - 5.40 05/15/2014 [facility] HEMATOLOGY MCHC 33.5 g/dL 32.0 - 36.0 05/15/2014 [facility] MCH 32.6 pg 27.0 - 31.0 05/15/2014 [facility] HEMATOLOGY Hct 37.2 % 36.0 - 48.0 05/15/2014 [facility] HEMATOLOGY MCV 97.3 fL 81.0 - 99.0 05/15/2014 [facility] HEMATOLOGY Platelet 161 K/CMM 133 - 450 05/15/2014 [facility] HEMATOLOGY RDW 14.0 % 11.5 - 14.5 05/15/2014 [facility] HEMATOLOGY MPV 9.7 fL 7.4 - 10.4 05/15/2014 [facility] HEMATOLOGY WBC 8.2 K/CMM 3.7 - 10.4 05/15/2014 [facility] CARDIAC ENZYMES Troponin-I 16.10 ng/mL 0.00 - 0.40 05/14/2014 8Result Comment: Critical Result(s) called to ADA GUAJARDO at 05/14/2014 15:45 by CV. Read back OK. [facility] CARDIAC ENZYMES Total CK 412 unit/L - 05/14/2014 [facility] CARDIAC ENZYMES CK MB Index 8.1 0.0 - 2.5 05/14/2014 [facility] CARDIAC ENZYMES CK MB 33.4 ng/mL 0.5 - 3.6 05/14/2014 [facility] CARDIAC ENZYMES CK MB Index 7.2 0.0 - 2.5 05/14/2014 [facility] CARDIAC ENZYMES CK MB 23.4 ng/mL 0.5 - 3.6 05/14/2014 [facility] CARDIAC ENZYMES Troponin-I 8.38 ng/mL 0.00 - 0.40 05/14/2014 9Result Comment: Critical Result(s) called to michelle at 05/14/2014 08:03 bynm. Read back OK. [facility] CARDIAC ENZYMES Total CK 323 unit/L - 05/14/2014 [facility] CARDIAC ENZYMES Total CK 68 unit/L - 05/14/2014 [facility] CARDIAC ENZYMES CK MB 1.0 ng/mL 0.5 - 3.6 05/14/2014 [facility] CARDIAC ENZYMES CK MB Index 1.5 0.0 - 2.5 05/14/2014 [facility] CHEM PANEL Glucose Lvl 130 mg/dL 70 - 99 05/14/2014 6Interpretive Data: Adult reference range values reflect the clinical guidelines of the [place] [employer]. [facility] CHEM PANEL BUN 11 mg/dL 7 - 22 05/14/2014 [facility] CHEM PANEL Creatinine Lvl 0.9 mg/dL 0.5 - 1.4 05/14/2014 [facility] CHEM PANEL Sodium Lvl 141 meq/L 135 - 145 05/14/2014 [facility] CHEM PANEL Potassium Lvl 3.4 meq/L 3.5 - 5.1 05/14/2014 [facility] CHEM PANEL Chloride Lvl 104 meq/L 95 - 109 05/14/2014 [facility] CHEM PANEL CO2 26 meq/L 24 - 32 05/14/2014 [facility] CHEM PANEL Calcium Lvl 8.6 mg/dL 8.5 - 10.5 05/14/2014 [facility] CHEM PANEL AGAP 14.4 meq/L 10.0 - 20.0 05/14/2014 [facility] CHEM PANEL eGFR 72 mL/min/1.73m2 05/14/2014 3Result Comment: The eGFR is calculated using the CKD-EPI formula. In most young, healthy individuals the eGFR will be >90 mL/min/1.73m2. The eGFR declines with age. An eGFR of 60-89 may be normal in some populations, particularly the elderly, for whom the CKD-EPI formula has not been extensively validated. Use of the eGFR is not recommended in the following populations: Individuals with unstable creatinine concentrations, including patients and those with serious co-morbid conditions. Patients with extremes in muscle mass or diet. The data above are obtained from the National Kidney Disease Education Program (NKDEP) which additionally recommends that when the eGFR is used in patients with extremes of body mass index for purposes of drug dosing, the eGFR should be multiplied by the estimated BMI. [facility] HEMATOLOGY RDW 13.8 % 11.5 - 14.5 05/14/2014 [facility] HEMATOLOGY Platelet 239 K/CMM 133 - 450 05/14/2014 [facility] HEMATOLOGY MPV 9.4 fL 7.4 - 10.4 05/14/2014 [facility] HEMATOLOGY MCV 96.8 fL 81.0 - 99.0 05/14/2014 [facility] MCH 31.8 pg 27.0 - 31.0 05/14/2014 [facility] MCHC 32.8 g/dL 32.0 - 36.0 05/14/2014 [facility] Hgb 14.1 g/dL 12.0 - 16.0 05/14/2014 [facility] Hct 42.9 % 36.0 - 48.0 05/14/2014 [facility] WBC 12.1 K/CMM 3.7 - 10.4 05/14/2014 [facility] RBC 4.43 M/CMM 4.20 - 5.40 05/14/2014 [facility] Basophils 0.3 % 0.0 - 1.0 05/14/2014 [facility] Segs-Bands # 9.0 K/CMM 1.5 - 8.1 05/14/2014 [facility] Lymphocytes # 2.3 K/CMM 1.0 - 5.5 05/14/2014 [facility] Monocytes # 0.7 K/CMM 0.0 - 0.8 05/14/2014 [facility] Eosinophils # 0.1 K/CMM 0.0 - 0.5 05/14/2014 [facility] Segs 74.7 % 45.0 - 75.0 05/14/2014 [facility] Lymphocytes 18.7 % 20.0 - 40.0 05/14/2014 [facility] Monocytes 5.4 % 2.0 - 12.0 05/14/2014 [facility] Eosinophils 0.9 % 0.0 - 4.0 05/14/2014 [facility] Elbow 3 views Elbow 3 views LEFT ELBOW 3 VIEWS: There is no visible fracture, however the fat pads are elevated suggesting the possibility of an occult fracture, possibly radial head. There are no other significant osseous or soft tissue abnormalities. SL:03/24/2013 - - Read by: Jamal Velasco Dictated Date/time: 03/24/13 10:14 Electronically Signed by: Jamal Velasco MD 03/24/13 10:16 FINAL REPORT [facility] Wrist complete ( min.3 views) Wrist complete ( min.3 views) Left wrist 3 views: There are no significant osseous, articular or soft tissue abnormalities. IMPRESSION: No acute radiographic abnormality of the left wrist. SL:03/24/2013 - - Read by: Jamal Velasco Dictated Date/time: 03/24/13 10:13 Electronically Signed by: Jamal Velasco MD 03/24/13 10:14 FINAL REPORT [facility] Vital Signs Vital Sign Value Date Comments Source Weight 129 12/28/2017 [facility] Height 65 12/28/2017 [facility] Heart Rate 50 12/28/2017 [facility] Diastolic (mm Hg) 72 12/28/2017 [facility] Systolic (mm Hg) 126 12/28/2017 [facility] Weight 131 12/14/2017 [facility] Height 65 12/14/2017 [facility] Heart Rate 68 12/14/2017 [facility] Diastolic (mm Hg) 64 12/14/2017 [facility] Systolic (mm Hg) 108 12/14/2017 [facility] Weight 133 06/11/2017 [facility] Height 65 06/11/2017 [facility] Heart Rate 51 06/11/2017 [facility] Diastolic (mm Hg) 70 06/11/2017 [facility] Systolic (mm Hg) 150 06/11/2017 [facility] Weight 137 01/29/2017 [facility] Height 65 01/29/2017 [facility] Heart Rate 76 01/29/2017 [facility] Diastolic (mm Hg) 68 01/29/2017 [facility] Systolic (mm Hg) 140 01/29/2017 [facility] Weight 142 12/17/2015 [facility] Heart Rate 54 12/17/2015 [facility] Diastolic (mm Hg) 55 12/17/2015 [facility] Systolic (mm Hg) 115 12/17/2015 [facility] Weight 146 12/08/2015 [facility] Height 65 12/08/2015 [facility] Heart Rate 74 12/08/2015 [facility] Diastolic (mm Hg) 82 12/08/2015 [facility] Systolic (mm Hg) 118 12/08/2015 [facility] Systolic (mm Hg) 135 12/01/2015 [facility] Diastolic (mm Hg) 78 12/01/2015 [facility] Respitory Rate 18 12/01/2015 [facility] Heart Rate 53 12/01/2015 [facility] Temperature Oral (F) 98.4 F 12/01/2015 [facility] Temperature Oral (F) 98.4 F 12/01/2015 [facility] Respitory Rate 18 12/01/2015 [facility] Heart Rate 51 12/01/2015 [facility] Systolic (mm Hg) 137 12/01/2015 [facility] Diastolic (mm Hg) 87 12/01/2015 [facility] Temperature Oral (F) 98.2 F 12/01/2015 [facility] Respitory Rate 18 12/01/2015 [facility] Heart Rate 59 12/01/2015 [facility] Systolic (mm Hg) 131 12/01/2015 [facility] Diastolic (mm Hg) 76 12/01/2015 [facility] Height 165.1 cm 12/01/2015 [facility] Weight 65.114 12/01/2015 [facility] BMI Calculated 23.89 12/01/2015 [facility] Weight 64.636 12/01/2015 [facility] Weight 64.636 12/01/2015 [facility] Weight 142 05/03/2015 [facility] Height 65 05/03/2015 [facility] Heart Rate 88 05/03/2015 [facility] Diastolic (mm Hg) 72 05/03/2015 [facility] Systolic (mm Hg) 138 05/03/2015 [facility] Diastolic (mm Hg) 72 07/11/2014 [facility] Systolic (mm Hg) 166 07/11/2014 [facility] Respitory Rate 20 07/11/2014 [facility] Heart Rate 72 07/11/2014 [facility] Temperature Oral (F) 97.8 F 07/11/2014 [facility] BMI Calculated 21.68 07/11/2014 [facility] Height 165.1 cm 07/11/2014 [facility] Weight 59.091 07/11/2014 [facility] Diastolic (mm Hg) 84 07/11/2014 [facility] Systolic (mm Hg) 172 07/11/2014 [facility] Heart Rate 77 07/11/2014 [facility] Temperature Oral (F) 97.8 F 07/11/2014 [facility] Respitory Rate 20 07/11/2014 [facility] Systolic (mm Hg) 117 05/16/2014 [facility] Diastolic (mm Hg) 75 05/16/2014 [facility] Respitory Rate 13 05/16/2014 [facility] Systolic (mm Hg) 118 05/16/2014 [facility] Diastolic (mm Hg) 64 05/16/2014 [facility] Respitory Rate 17 05/16/2014 [facility] Diastolic (mm Hg) 66 05/16/2014 [facility] Systolic (mm Hg) 121 05/16/2014 [facility] Respitory Rate 14 05/16/2014 [facility] Temperature Oral (F) 98.8 F 05/16/2014 [facility] Temperature Oral (F) 97.8 F 05/16/2014 [facility] Temperature Oral (F) 97.3 F 05/16/2014 [facility] Weight 61.364 05/14/2014 [facility] Height 165.1 cm 05/14/2014 [facility] BMI Calculated 22.51 05/14/2014 [facility] Weight 59.091 05/14/2014 [facility] Height 165.1 cm 05/14/2014 [facility] BMI Calculated 21.68 05/14/2014 [facility] Weight 61.364 05/14/2014 [facility] Heart Rate 72 05/14/2014 [facility] Weight 139 10/02/2013 [facility] Height 65 10/02/2013 [facility] Temperature Oral (F) 100.4 F 10/02/2013 [facility] Heart Rate 88 10/02/2013 [facility] Diastolic (mm Hg) 88 10/02/2013 [facility] Systolic (mm Hg) 146 10/02/2013 [facility] Weight 140 08/05/2013 [facility] Height 65 08/05/2013 [facility] Heart Rate 80 08/05/2013 [facility] Diastolic (mm Hg) 82 08/05/2013 [facility] Systolic (mm Hg) 126 08/05/2013 [facility] Weight 139 06/18/2013 [facility] Height 65 06/18/2013 [facility] Heart Rate 72 06/18/2013 [facility] Diastolic (mm Hg) 70 06/18/2013 [facility] Systolic (mm Hg) 148 06/18/2013 [facility] Encounters Location Location Details Encounter Type Encounter Number Reason For Visit Attending Provider ADM Date DC Date Status Source [facility] Emergency [id number] MIGUEL WING 03/24/2013 03/24/2013 [facility] Unknown [id number] 07/09/2013 07/09/2013 [facility] Unknown [id number] 07/09/2013 07/09/2013 [facility] Unknown [id number] 07/09/2013 07/09/2013 [facility] Unknown [id number] 07/09/2013 07/09/2013 [facility] Unknown [id number] 07/09/2013 07/09/2013 [facility] Unknown [id number] 07/09/2013 07/09/2013 [facility] Unknown [id number] 07/09/2013 07/09/2013 Gary Dee MD, PA [facility] Unknown [id number] 07/09/2013 07/09/2013 [facility] Unknown [id number] 07/09/2013 07/09/2013 [facility] Unknown [id number] 07/09/2013 07/09/2013 [facility] Unknown [id number] 07/09/2013 07/09/2013 Gary Dee MD, PA [facility] Unknown [id number] 07/09/2013 07/09/2013 [facility] Unknown [id number] 07/09/2013 07/09/2013 [facility] Unknown [id number] 07/09/2013 07/09/2013 [facility] [place] [id number] 08/05/2013 08/05/2013 [facility] [place] [id number] 08/05/2013 08/05/2013 [facility] [place] [id number] 08/05/2013 08/05/2013 [facility] [place] [id number] 08/05/2013 08/05/2013 [facility] [place] [id number] 08/05/2013 08/05/2013 [facility] [place] [id number] 08/05/2013 08/05/2013 Gary Dee MD, PA [facility] [place] [id number] 08/05/2013 08/05/2013 [facility] [place] [id number] 08/05/2013 08/05/2013 [facility] [place] [id number] 08/05/2013 08/05/2013 [facility] [place] [id number] 08/05/2013 08/05/2013 Gray Dee MD, PA [facility] [place] [id number] 08/05/2013 08/05/2013 [facility] [place] [id number] 08/05/2013 08/05/2013 [facility] [place] [id number] 08/05/2013 08/05/2013 [facility] CHEST CONGESTION [id number] 10/02/2013 10/02/2013 [facility] CHEST CONGESTION [id number] 10/02/2013 10/02/2013 [facility] CHEST CONGESTION [id number] 10/02/2013 10/02/2013 [facility] CHEST CONGESTION [id number] 10/02/2013 10/02/2013 [facility] CHEST CONGESTION [id number] 10/02/2013 10/02/2013 Gary Dee MD, PA [facility] CHEST CONGESTION [id number] 10/02/2013 10/02/2013 [facility] CHEST CONGESTION [id number] 10/02/2013 10/02/2013 [facility] CHEST CONGESTION [id number] 10/02/2013 10/02/2013 [facility] CHEST CONGESTION [id number] 10/02/2013 10/02/2013 Gary Dee MD, PA [facility] CHEST CONGESTION [id number] 10/02/2013 10/02/2013 [facility] CHEST CONGESTION [id number] 10/02/2013 10/02/2013 [facility] CHEST CONGESTION [id number] 10/02/2013 10/02/2013 [facility] [id number] Lashonda Mcginnis 05/14/2014 05/16/2014 [facility] Unknown [id number] 05/21/2014 05/21/2014 [facility] Unknown [id number] 05/21/2014 05/21/2014 [facility] Unknown [id number] 05/21/2014 05/21/2014 [facility] Unknown [id number] 05/21/2014 05/21/2014 [facility] Unknown [id number] 05/21/2014 05/21/2014 Gary Dee MD, PA [facility] Unknown [id number] 05/21/2014 05/21/2014 [facility] Unknown [id number] 05/21/2014 05/21/2014 [facility] Unknown [id number] 05/21/2014 05/21/2014 Gary Dee MD, PA [facility] Unknown [id number] 05/21/2014 05/21/2014 [facility] Unknown [id number] 05/21/2014 05/21/2014 [facility] Unknown [id number] 05/21/2014 05/21/2014 [facility] [id number] Trey Ledesma 07/11/2014 07/11/2014 [facility] hospital follow up [id number] 05/03/2015 05/03/2015 [facility] follow up [id number] 05/03/2015 05/03/2015 [facility] follow up [id number] 05/03/2015 05/03/2015 [facility] follow up [id number] 05/03/2015 05/03/2015 Gary Dee MD, PA [facility] follow up [id number] 05/03/2015 05/03/2015 [facility] follow up [id number] 05/03/2015 05/03/2015 [facility] follow up [id number] 05/03/2015 05/03/2015 Gary Dee MD, PA [facility] follow up [id number] 05/03/2015 05/03/2015 [facility] follow up [id number] 05/03/2015 05/03/2015 [facility] follow up [id number] 05/03/2015 05/03/2015 [facility] Refill [id number] 07/09/2015 07/09/2015 [facility] Refill [id number] 07/09/2015 07/09/2015 [facility] Refill [id number] 07/09/2015 07/09/2015 Gary Dee MD, PA [facility] Refill [id number] 07/09/2015 07/09/2015 [facility] Refill [id number] 07/09/2015 07/09/2015 [facility] Refill [id number] 07/09/2015 07/09/2015 Gary Dee MD, PA [facility] Refill [id number] 07/09/2015 07/09/2015 [facility] Refill [id number] 07/09/2015 07/09/2015 [facility] Refill [id number] 07/09/2015 07/09/2015 [facility] Refill and also NST work up [id number] 07/27/2015 07/27/2015 [facility] Refill and also NST work up [id number] 07/27/2015 07/27/2015 [facility] Refill and also NST work up [id number] 07/27/2015 07/27/2015 Gary Dee MD, PA [facility] Refill and also NST work up [id number] 07/27/2015 07/27/2015 [facility] Refill and also NST work up [id number] 07/27/2015 07/27/2015 [facility] Refill and also NST work up [id number] 07/27/2015 07/27/2015 Gary Dee MD, PA [facility] Refill and also NST work up [id number] 07/27/2015 07/27/2015 [facility] Refill and also NST work up [id number] 07/27/2015 07/27/2015 [facility] Refill and also NST work up [id number] 07/27/2015 07/27/2015 [facility] Refill [id number] 08/17/2015 08/17/2015 [facility] Refill [id number] 08/17/2015 08/17/2015 [facility] Refill [id number] 08/17/2015 08/17/2015 Gary Dee MD, PA [facility] Refill [id number] 08/17/2015 08/17/2015 [facility] Refill [id number] 08/17/2015 08/17/2015 [facility] Refill [id number] 08/17/2015 08/17/2015 Gary Dee MD, PA [facility] Refill [id number] 08/17/2015 08/17/2015 [facility] Refill [id number] 08/17/2015 08/17/2015 [facility] Refill [id number] 08/17/2015 08/17/2015 [facility] Refill [id number] 08/19/2015 08/19/2015 [facility] Refill [id number] 08/19/2015 08/19/2015 [facility] Refill [id number] 08/19/2015 08/19/2015 Gary Dee MD, PA [facility] Refill [id number] 08/19/2015 08/19/2015 [facility] Refill [id number] 08/19/2015 08/19/2015 [facility] Refill [id number] 08/19/2015 08/19/2015 Gary Dee MD, PA [facility] Refill [id number] 08/19/2015 08/19/2015 [facility] Refill [id number] 08/19/2015 08/19/2015 [facility] Refill [id number] 08/19/2015 08/19/2015 [facility] OBS Observation Patient [id number] Serene Houstonranious 12/01/2015 12/02/2015 [facility] hosp fu [id number] 12/08/2015 12/08/2015 [facility] hosp fu [id number] 12/08/2015 12/08/2015 [facility] hosp fu [id number] 12/08/2015 12/08/2015 Gary Dee MD, PA [facility] Unknown [id number] 12/08/2015 12/08/2015 [facility] Unknown [id number] 12/08/2015 12/08/2015 [facility] Unknown [id number] 12/08/2015 12/08/2015 Gary Dee MD, PA [facility] hosp fu [id number] 12/08/2015 12/08/2015 [facility] hosp fu [id number] 12/08/2015 12/08/2015 [facility] hosp fu [id number] 12/08/2015 12/08/2015 Gary Dee MD, PA [facility] hosp fu [id number] 12/08/2015 12/08/2015 [facility] hosp fu [id number] 12/08/2015 12/08/2015 [facility] hosp fu [id number] 12/08/2015 12/08/2015 [facility] Unknown [id number] 12/08/2015 12/08/2015 [facility] Unknown [id number] 12/08/2015 12/08/2015 [facility] Unknown [id number] 12/08/2015 12/08/2015 Gary Dee MD, PA [facility] Unknown [id number] 12/08/2015 12/08/2015 [facility] Unknown [id number] 12/08/2015 12/08/2015 [facility] Unknown [id number] 12/08/2015 12/08/2015 [facility] Gary Dee MD, PA Unknown [id number] 12/17/2015 12/17/2015 Gary Dee MD, PA Gary Dee MD, PA Unknown [id number] 12/17/2015 12/17/2015 [facility] Gary Dee MD, PA Unknown [id number] 12/17/2015 12/17/2015 [facility] Gary Dee MD, PA echo/carotid/arterial dopplers [id number] 12/30/2015 12/30/2015 [facility] Gary Dee MD, PA echo/carotid/arterial dopplers [id number] 12/30/2015 12/30/2015 [facility] Gary Dee MD, PA echo/carotid/arterial dopplers [id number] 12/30/2015 12/30/2015 Gary Dee MD, PA Gary Dee MD, PA echo/carotid/arterial dopplers [id number] 12/30/2015 12/30/2015 Gary Dee MD, PA Gary Dee MD, PA echo/carotid/arterial dopplers [id number] 12/30/2015 12/30/2015 [facility] Gary Dee MD, PA echo/carotid/arterial dopplers [id number] 12/30/2015 12/30/2015 [facility] Gary Dee MD, PA echo/carotid/arterial dopplers [id number] 12/30/2015 12/30/2015 [facility] medication [id number] 01/05/2016 01/05/2016 [facility] medication [id number] 01/05/2016 01/05/2016 [facility] medication [id number] 01/05/2016 01/05/2016 Gary Dee MD, PA [facility] medication [id number] 01/05/2016 01/05/2016 [facility] medication [id number] 01/05/2016 01/05/2016 [facility] medication [id number] 01/05/2016 01/05/2016 [facility] Unknown [id number] 02/01/2016 02/01/2016 [facility] Unknown [id number] 02/01/2016 02/01/2016 [facility] Unknown [id number] 02/01/2016 02/01/2016 Gary Dee MD, PA [facility] Unknown [id number] 02/01/2016 02/01/2016 [facility] Unknown [id number] 02/01/2016 02/01/2016 [facility] pharmacy change [id number] 02/21/2016 02/21/2016 [facility] pharmacy change [id number] 02/21/2016 02/21/2016 Gary Dee MD, PA [facility] pharmacy change [id number] 02/21/2016 02/21/2016 [facility] pharmacy change [id number] 02/21/2016 02/21/2016 [facility] Unknown [id number] 09/11/2016 09/11/2016 [facility] Unknown [id number] 09/11/2016 09/11/2016 [facility] Unknown [id number] 11/28/2016 11/28/2016 [facility] Outpatient [id number] Amir Ghebranious 01/30/2017 01/31/2017 [facility] [place] OP Therapy Patients [id number] Umesh Ishaaoui 07/16/2017 08/15/2017 [facility] [place] [facility] Outpatient [id number] ABDOMINAL LUMP AMIR HILARIOEBNIKOLAYIOUS Active [facility] Procedures Procedure Code Date Perfomer Comments Source section [id number] [facility] [place] Cholecystectomy [id number] [facility] [place] Hysterectomy<sup>1</sup> [id number] complete per pt [facility] [place] Stent placement [id number] [facility] [place] Tonsillectomy [id number] [facility] [place] section [id number] [facility] Tonsillectomy [id number] [facility] Cholecystectomy [id number] [facility] Hysterectomy<sup>1</sup> [id number] complete per pt [facility] Stent placement [id number] [facility]
--- OUTSIDE RECORDS SUMMARY | 2019-02-10 20:29 | XMS REPORT ---
Author Author Alcira De La Rosa [employer] Address Unknown Phone Unavailable Care Team Providers Care Craft Worker Name Role Phone Alcira De La Rosa CP Unavailable Encounters Encounter Location Date Unknown [facility] May 21, 2014 hospital follow up [facility] May 03, 2015 Refill [facility] Jul 09, 2015 Refill and also NST work up [facility] Jul 27, 2015 Unknown [facility] Jul 09, 2013 LUMP IN BREAST [facility] Aug 05, 2013 CHEST CONGESTION [facility] Oct 02, 2013 Unknown [facility] Dec 08, 2015 Refill [facility] Aug 17, 2015 Refill [facility] Aug 19, 2015 echo/carotid/arterial dopplers Gary Dee MD, PA December 30, 2015 hosp fu [facility] Dec 08, 2015 medication [facility] January 05, 2016 Problems Problem Type Condition ICD-9 Code Onset Dates Condition Status Problem Essential (primary) hypertension I10 Active Problem Vitamin D deficiency E55.9 Active Problem Coronary atherosclerosis of [place] coronary artery I25.10 Active Problem Normal body mass index Z78.9 Active Problem History of CVA (cerebrovascular accident) Z86.73 Active Problem Tobacco use Z72.0 Active Problem Transient cerebral ischemia G45.9 Active Problem HTN (hypertension), benign 401.1 Active Problem History of [place] (myocardial infarction) I25.2 Active Problem Smoker F17.200 Active Problem Grade III hemorrhoids K64.2 Active Problem Diverticulitis of large intestine without perforation or abscess without bleeding K57.32 Active Problem Mixed hyperlipidemia E78.2 Active Social History Social History Element Qualifiers Date Reported children . 1 Dec 09, 2015 Tobacco Use: . Are you a: current smoker 15 cigs a day Dec 09, 2015 Marital Status: . Dec 09, 2015 Do you drink alcohol? . 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
--- OUTSIDE RECORDS SUMMARY | 2019-02-10 20:29 | XMS REPORT ---
Author Author Serene Keller Organization [employer] Address Unknown Phone Unavailable Care Team Providers Care Unit Director Name Role Phone Serene Keller CP Unavailable Allergies, Adverse Reactions, Alerts Substance Reaction Event Type Ativan Info Not Available Drug Allergy Encounters Encounter Location Date Unknown [facility] Jul 09, 2013 LUMP IN BREAST [facility] Aug 05, 2013 Problems Problem Type Condition ICD-9 Code Onset Dates Condition Status Assessment Breast pain 611.71 Active Assessment Costochondritis 733.6 Active Problem Vitamin d deficiency 268.9 Active Problem CAD (Coronary atherosclerosis of [place] coronary artery) 414.01 Active Problem Elevated CEA 795.81 Active Problem CVA 434.91 Active Problem Nicotine addiction /use (Tobacco Use (Nondependent tobacco use disorder)) 305.1 Active Problem HTN (Unspecified essential hypertension) 401.9 Active Problem Hyperlipidemia (Mixed hyperlipidemia) 272.2 Active Medications Medication Code System Code Instructions Start Date End Date Status Dosage Estradiol [facility] [address]-61 1 MG Orally daily Jul 09, 2013 Active 1 tablet Naprosyn [facility] [address]-17 500 mg Orally every 12 hrs Aug 05, 2013 Oct 04, 2013 Active 1 tablet as needed Lipitor [facility] [address]-34 80 mg Orally Once a day February 28, 2013 Active 1 tablet Vitamin D [facility] [address]-77 18332 U Orally once per week February 28, 2013 Aug 27, 2013 Active as directed Tenormin [facility] [address]-40 50 mg Orally twice a day (bid) February 03, 2013 Active 1 tablet Zetia [facility] [address]-33 10 mg Orally Once a day Jun 18, 2013 Active 1 tablet Social History Social History Element Qualifiers Date Reported children . 1 Aug 05, 2013 Tobacco Use: . Are you a: current smoker 15 cigs a day Aug 05, 2013 Marital Status: . Aug 05, 2013 Do you drink alcohol? . 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
--- OUTSIDE RECORDS SUMMARY | 2019-02-10 20:29 | XMS REPORT ---
Author Author Tess Posey Organization e[employer] Address Unknown Phone Unavailable Care Team Providers Care Veneer Splicer Name Role Phone Tess Posey CP Unavailable Encounters Encounter Location Date Unknown [facility] May 21, [address] [facility] May 03, 2015 Refill [facility] Jul 09, 2015 Refill and also NST work up [facility] Jul 27, [address] [facility] Jul 09, [address] [facility] Dec 08, [address] [facility] Aug 05, 2013 echo/carotid/arterial dopplers Gary Dee MD, [place] December 30, [address] [facility] Oct 02, [address] [facility] Dec 08, [address] [facility] Aug 17, [address] [facility] Aug 19, 2015 Summary Purpose eClinicalWorks Submission
--- OUTSIDE RECORDS SUMMARY | 2019-02-10 20:29 | XMS REPORT ---
Author Author Brittany Marx [facility] eClinicalWorks Address Unknown Phone Unavailable Care Team Providers Care Dressmaker Helper Name Role Phone Brittany Marx CP Unavailable Allergies No Known Allergies Problems Problem Type Condition Code Onset Dates Condition Status Problem Mixed hyperlipidemia E78.2 Active Problem Coronary atherosclerosis of [place] coronary artery I25.10 Active Problem Essential (primary) hypertension I10 Active Problem Grade III hemorrhoids K64.2 Active Problem Diverticulitis of large intestine without perforation or abscess without bleeding K57.32 Active Problem Normal body mass index Z78.9 Active Problem History of CVA (cerebrovascular accident) Z86.73 Active Problem Tobacco use Z72.0 Active Problem Transient cerebral ischemia G45.9 Active Problem Vitamin D deficiency E55.9 Active Problem History of [place] (myocardial infarction) I25.2 Active Problem Smoker F17.200 Active Medications Medication Code System Code Instructions Start Date End Date Status Dosage Metoprolol Succinate NDC 0 100 MG Orally once daily Jun 13, 2017 January 09, 2018 Active 1 tablet Results No Known Results Summary Purpose eClinicalWorks Submission
--- OUTSIDE RECORDS SUMMARY | 2019-02-10 20:29 | XMS REPORT ---
Author Author Alcira De La Rosa Organization eClinicalWorks Address Unknown Phone Unavailable Care Team Providers Care Data Analytics Analyst Name Role Phone Alcira De La Rosa CP Unavailable Allergies, Adverse Reactions, Alerts Substance Reaction Event Type Ativan Info Not Available Drug Allergy Problems Problem Type Condition Code Onset Dates Condition Status Assessment Essential (primary) hypertension I10 Active Problem Essential (primary) hypertension I10 Active Problem Mixed hyperlipidemia E78.2 Active Problem Menopausal state N95.1 Active Problem Tobacco use Z72.0 Active Problem Hyperglycemia R73.9 Active Problem Vitamin D deficiency E55.9 Active Problem Coronary atherosclerosis of [place] coronary artery I25.10 Active Problem Normal body mass index Z78.9 Active Problem Smoker F17.200 Active Assessment Hyperglycemia R73.9 Active Assessment Mixed hyperlipidemia E78.2 Active Assessment Vitamin D deficiency E55.9 Active Medications Medication Code System Code Instructions Start Date End Date Status Dosage Plavix NDC 23707877751 75 MG Orally once a day Active 1 tablet Tenormin ND 20729861799 50 mg Orally twice a day (bid) February 03, 2013 Active 1 tablet Nitroglycerin NDC 00992832894 0.4 MG Sublingual Active not defined Metoprolol Succinate NDC 0 100 mg Orally once daily Jun 13, 2017 Jun 12, 2018 Active 1 tablet Vital Signs Date/Time: December 28, 2017 BMI 21.46 Index Weight 129 lbs Height 65 in Cardiac Monitoring Heart Rate 50 /min Blood Pressure Diastolic 72 mm Hg Blood Pressure Systolic 126 mm Hg Results No Known Results Summary Purpose eClinicalWorks Submission
--- OUTSIDE RECORDS SUMMARY | 2019-02-10 20:29 | XMS REPORT ---
Author Author Yue Yeung [facility] eClinicalWorks Address Unknown Phone Unavailable Care Team Providers Care Varnish Maker Helper Name Role Phone Yue Yeung CP Unavailable Allergies, Adverse Reactions, Alerts Substance Reaction Event Type Ativan Info Not Available Drug Allergy Encounters Encounter Location Date Unknown [facility] Jul 09, 2013 LUMP IN BREAST [facility] Aug 05, 2013 CHEST CONGESTION [facility] Oct 02, 2013 Problems Problem Type Condition ICD-9 Code Onset Dates Condition Status Assessment Bronchitis 490 Active Problem Vitamin d deficiency 268.9 Active Problem CAD (Coronary atherosclerosis of [place] coronary artery) 414.01 Active Problem Elevated CEA 795.81 Active Problem CVA 434.91 Active Problem Nicotine addiction /use (Tobacco Use (Nondependent tobacco use disorder)) 305.1 Active Problem HTN (Unspecified essential hypertension) 401.9 Active Problem Hyperlipidemia (Mixed hyperlipidemia) 272.2 Active Medications Medication Code System Code Instructions Start Date End Date Status Dosage Estradiol [facility] [address]-01 1 MG Orally daily Jul 09, 2013 Active 1 tablet Bromfed DM [facility] [address]-90 30-2-10 MG/5ML Orally every 6 hrs Oct 02, 2013 Oct 07, 2013 Active 10 ml as needed Levaquin [facility] [address]-36 500 MG Orally Once a day Oct 02, 2013 Oct 09, 2013 Active 1 tablet Naprosyn [facility] [address]-30 500 mg Orally every 12 hrs Aug 05, 2013 Oct 04, 2013 Active 1 tablet as needed Lipitor [facility] [address]-66 80 mg Orally Once a day February 28, 2013 Active 1 tablet Tenormin [facility] [address]-29 50 mg Orally twice a day (bid) February 03, 2013 Active 1 tablet Zetia [facility] [address]-01 10 mg Orally Once a day Jun 18, 2013 Active 1 tablet DexPak 6 Day [facility] [address]-11 1.5 MG Orally as directed Oct 02, 2013 Oct 08, 2013 Active as directed Social History Social History Element Qualifiers Date Reported children . 1 Oct 02, 2013 Tobacco Use: . Are you a: current smoker 15 cigs a day Oct 02, 2013 Marital Status: . Oct 02, 2013 Do you drink alcohol? . 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
--- OUTSIDE RECORDS SUMMARY | 2019-02-10 20:29 | XMS REPORT | Summary of Care ---
Author Organization Unknown Address Unknown Phone Unavailable Encounter [facility](PILI) [id number] Date(s): 05/14/14 - 05/16/14 [facility] [address] Discharge Disposition: Home Physician Attending: Lashonda Mcginnis MD Physician Admitting: Lashonda Mcginnis MD Reason for Visit NON STEMI Vital Signs 1 2 3 Most recent to oldest [Reference Range]: 165.1 cm (05/14/14 4:11 PM) 165.1 cm (05/14/14 5:12 AM) Height 98.8 DegF (05/16/14 8:00 AM) 97.8 DegF (05/16/14 4:00 AM) 97.3 DegF (05/16/14 12:00 AM) Temperature Oral [96.4-99.1 DegF] 117 mmHg (05/16/14 10:00 AM) 118 mmHg (05/16/14 9:00 AM) 121 mmHg (05/16/14 8:00 AM) Systolic Blood Pressure [90-140 mmHg] 75 mmHg (05/16/14 10:00 AM) 64 mmHg (05/16/14 9:00 AM) 66 mmHg (05/16/14 8:00 AM) Diastolic Blood Pressure [60-90 mmHg] 13 BRMIN *LOW* (05/16/14 10:00 AM) 17 BRMIN (05/16/14 9:00 AM) 14 BRMIN (05/16/14 8:00 AM) Respiratory Rate [14-20 BRMIN] 72 bpm (05/14/14 12:04 AM) Peripheral Pulse Rate [60-100 bpm] 61.364 kg (05/14/14 4:11 PM) 59.091 kg (05/14/14 5:12 AM) 61.364 kg (05/14/14 12:04 AM) Weight 22.51 m2 (05/14/14 4:11 PM) 21.68 m2 (05/14/14 5:12 AM) Body Mass Index Problem List Condition Effective Dates Status Health Status Informant HTN - Active Hypertension(Confirm ed) Hyperlipidemia(Confi Resolved rmed) [place] - Myocardial Resolved infarction(Confirmed ) TIA(Confirmed) Resolved Allergies, Adverse Reactions, Alerts Substance Reaction Severity Status Ativan Active Phenergan Active Medications Ambien 5 mg, 1 tab, Route: PO, Drug form: TAB, Bedtime, Dosing Weight 61.364, kg, PRN I nsomnia, Start date: 05/14/14 18:37:00, Duration: 30 day, Stop date: 06/13/14 18 :36:00 Notes: (Same As: Ambien) Start Date: 05/14/14 Stop Date: 05/16/14 Status: Discontinued aspirin 325 mg tablet 325 mg, 1 tab, Route: PO, Drug form: TAB, Daily, Dosing Weight 59.091, kg, Start date: 05/15/14 9:00:00, Duration: 30 day, Stop date: 06/13/14 9:00:00 Notes: Take with food. Start Date: 05/15/14 Stop Date: 05/16/14 Status: Discontinued aspirin 325 mg tablet 325 mg=1 tab, PO, Daily, # 30 tab, 0 Refill(s) Start Date: 05/16/14 Status: Ordered aspirin 325 mg tablet, enteric coated 325 mg, 1 tab, Route: PO, Drug form: ECTAB, Q24H, Dosing Weight 61.364, kg, Star t date: 05/14/14 6:00:00, Duration: 30 day, Stop date: 06/12/14 6:00:00 Notes: (Do Not Crush) Do not crush or chew. Start Date: 05/14/14 Stop Date: 05/14/14 Status: Voided With Results atropine 0.5 mg, 5 mL, Route: IVP, Drug form: INJ, PRN, PRN Bradycardia, Start date: 04/28 05/11 15:39:00, Duration: 30 day, Stop date: 06/13/14 15:38:00 Start Date: 05/14/14 Stop Date: 05/16/14 Status: Discontinued clopidogrel 75 mg, Route: PO, Drug form: TAB, Daily, Dosing Weight 61.364, kg, Start date: 0 05/15/14 9:00:00, Duration: 30 day, Stop date: 06/13/14 9:00:00 Start Date: 05/15/14 Stop Date: 05/14/14 Status: Deleted clopidogrel 300 mg, Route: PO, Drug form: TAB, ONCE, Dosing Weight 61.364, kg, Priority: NOW , Start date: 05/14/14 18:27:00, Stop date: 05/14/14 18:27:00 Start Date: 05/14/14 Stop Date: 05/14/14 Status: Discontinued clopidogrel 75 mg oral tablet 75 mg=1 tab, PO, Daily, # 30 tab, 0 Refill(s) Start Date: 05/16/14 Status: Ordered Crestor 10 mg, 1 tab, Route: PO, Drug form: TAB, Bedtime, Dosing Weight 59.091, kg, Star t date: 05/14/14 21:00:00, Duration: 30 day, Stop date: 06/12/14 21:00:00 Notes: (Same As: Crestor) Start Date: 05/14/14 Stop Date: 05/16/14 Status: Discontinued eptifibatide 10.6364 mg, 5.32 mL, Route: IV, Drug form: INJ, ONCE, Start date: 05/14/14 11:01 :00, Stop date: 05/14/14 11:01:00 Notes: (Same as: Integrelin) Start Date: 05/14/14 Stop Date: 05/14/14 Status: Completed eptifibatide 75 mg [2 microgram/kg/min] IV, 9.45 ml/hr, Start date: 05/14/14 11:00:00, Duration: 72, 100 ml, 59.091 Notes: (Same as: Integrelin) Final conc=0.75 mg/mL - Premix Bottle Start Date: 05/14/14 Stop Date: 05/15/14 Status: Discontinued Integrilin 75 mg in 100 ml premix IV 75 mg 75 mg, 100 mL, Rate: Titrate, Dosing Weight 59.091, kg, Route: IV, Total Volume: 100 mL, Start date: 05/14/14 10:53:00, Duration: 72 hr, Stop date: 05/17/14 10: 52:00, Replace Every: 24 hr Start Date: 05/14/14 Stop Date: 05/14/14 Status: Deleted lisinopril 5 mg, 1 tab, Route: PO, Drug form: TAB, Daily, Dosing Weight 61.364, kg, Start d ate: 05/15/14 9:00:00, Duration: 30 day, Stop date: 06/13/14 9:00:00 Notes: (Same as: Prinivil, Zestril) Start Date: 05/15/14 Stop Date: 05/16/14 Status: Discontinued Lovenox 60 mg, 0.6 mL, Route: SUB-Q, Drug form: INJ, ONCE, Dosing Weight 61.364, kg, Arlen ority: STAT, Start date: 05/14/14 3:32:00, Stop date: 05/14/14 3:32:00 Notes: Nurse to ensure documentation of patient education per anticoagulation po licy. (Same as: Lovenox) Start Date: 05/14/14 Stop Date: 05/14/14 Status: Completed metoprolol tartrate 25 mg, Route: PO, Drug form: TAB, Q12H, Dosing Weight 61.364, kg, Start date: 21:00:00, Duration: 30 day, Stop date: 06/13/14 9:00:00 Start Date: 05/14/14 Stop Date: 05/14/14 Status: Deleted metoprolol tartrate 25 mg, 1 tab, Route: PO, Drug form: TAB, Q12H, Dosing Weight 59.091, kg, Start d ate: 05/14/14 9:00:00, Duration: 30 day, Stop date: 06/12/14 21:00:00 Notes: (Same as: Lopressor) Start Date: 05/14/14 Stop Date: 05/16/14 Status: Discontinued metoprolol tartrate 25 mg oral tablet 25 mg=1 tab, PO, BID, # 60 tab, 0 Refill(s) Start Date: 05/16/14 Status: Ordered morphine Sulfate 2 mg, Route: IVP, ONCE, Dosing Weight 61.364, kg, Priority: STAT, Start date: 2:31:00, Stop date: 05/14/14 2:31:00 Start Date: 05/14/14 Stop Date: 05/14/14 Status: Completed morphine Sulfate 2 mg, 1 mL, Route: IVP, Drug form: INJ, Q4H, Dosing Weight 59.091, kg, PRN Chest Pain, Start date: 05/14/14 8:40:00, Duration: 30 day, Stop date: 06/13/14 8:39: 00 Notes: (Same as:MORPhine Sulfate) Start Date: 05/14/14 Stop Date: 05/16/14 Status: Discontinued morphine Sulfate 2 mg, Route: IVP, ONCE, Dosing Weight 61.364, kg, Priority: STAT, Start date: 1:00:00, Stop date: 05/14/14 1:00:00 Start Date: 05/14/14 Stop Date: 05/14/14 Status: Completed morphine Sulfate 2 mg, 1 mL, Route: IVP, Drug form: INJ, Q15Min, Dosing Weight 61.364, kg, PRN Ch est Pain, Start date: 05/14/14 18:27:00, Duration: 2 doses or times, Stop date: Limited # of times Notes: (Same as:MORPhine Sulfate) Start Date: 05/14/14 Stop Date: 05/16/14 Status: Discontinued nitroglycerin 100 mg in 250 ml [id number] Premix (titrate) 100 mg 100 mg, 250 mL, Rate: Titrate as Directed, Dosing Weight 61.364, kg, Route: IV, Total Volume: 250 mL, Start date: 05/14/14 2:31:00, Duration: 30 day, Stop date: 06/13/14 2:30:00, Replace Every: 24 hr Notes: (Same as:Tridil) Final conc=0.4 mg/ml. Premix bottle. Start Date: 05/14/14 Stop Date: 05/15/14 Status: Discontinued nitroglycerin SL Tab 0.4 mg, Route: SL, Drug form: TAB, Q5Min, Dosing Weight 61.364, kg, PRN Chest Pa in, Start date: 05/14/14 18:27:00, Duration: 3 doses or times, Stop date: Limite d # of times Start Date: 05/14/14 Stop Date: 05/14/14 Status: Deleted nitroglycerin SL Tab 0.4 mg, 1 tab, Route: SL, Drug form: TAB, Q5Min, Dosing Weight 61.364, kg, PRN C hest Pain, Start date: 05/14/14 5:11:00, Duration: 3 doses or times, Stop date: Limited # of times Notes: (Same as:Nitroquick, Nitrostat)"Do Not Crush" Sublingual tablet Start Date: 05/14/14 Stop Date: 05/16/14 Status: Discontinued Nitrostat 0.4 mg sublingual tablet 0.4 mg=1 tab, SL, Q5Min, Chest Pain, # 100 tab, 0 Refill(s) Start Date: 05/16/14 Status: Ordered Plavix 75 mg, 1 tab, Route: PO, Drug form: TAB, Daily, Dosing Weight 59.091, kg, Start date: 05/15/14 9:00:00, Duration: 30 day, Stop date: 06/13/14 9:00:00 Notes: (Same As: Plavix) Start Date: 05/15/14 Stop Date: 05/16/14 Status: Discontinued Plavix 600 mg, 2 tab, Route: PO, Drug form: TAB, ONCE, Dosing Weight 59.091, kg, Start date: 05/14/14 8:37:00, Duration: 1 doses or times, Stop date: 05/14/14 8:37:00 Notes: ( Same as: Plavix) Start Date: 05/14/14 Stop Date: 05/14/14 Status: Completed Saline Flush 0.9% 5 ml, Route: IVP, Drug Form: INJ, Dosing Weight 59.091, kg, PRN, PRN Line Flush, Start date: 05/14/14 8:52:00, Duration: 30 day, Stop date: 06/13/14 8:51:00 Notes: (Same as: BD Posiflush) Start Date: 05/14/14 Stop Date: 05/16/14 Status: Discontinued Saline Flush 0.9% 5 ml, Route: IVP, Drug Form: INJ, Dosing Weight 59.091, kg, Q12H, Start date: 9:00:00, Duration: 30 day, Stop date: 06/12/14 21:00:00 Notes: (Same as: BD Posiflush) Start Date: 05/14/14 Stop Date: 05/16/14 Status: Discontinued Saline Flush 0.9% 5 ml, Route: IVP, Drug Form: INJ, Dosing Weight 61.364, kg, PRN, PRN Line Flush, Start date: 05/14/14 18:27:00, Duration: 30 day, Stop date: 06/13/14 18:26:00 Start Date: 05/14/14 Stop Date: 05/14/14 Status: Deleted Saline Flush 0.9% 5 ml, Route: IVP, Drug Form: INJ, Dosing Weight 61.364, kg, Q12H, Start date: 21:00:00, Duration: 30 day, Stop date: 06/13/14 9:00:00 Start Date: 05/14/14 Stop Date: 05/14/14 Status: Deleted Saline Flush 0.9% 5 ml, Route: IVP, Drug Form: INJ, Dosing Weight 61.364, kg, PRN, PRN Line Flush, Start date: 05/14/14 5:11:00, Duration: 30 day, Stop date: 06/13/14 5:10:00 Notes: Same as: BD Posiflush Sterile Start Date: 05/14/14 Stop Date: 05/16/14 Status: Discontinued Saline Flush 0.9% 5 ml, Route: IVP, Drug Form: INJ, Dosing Weight 61.364, kg, Q12H, Start date: 9:00:00, Duration: 30 day, Stop date: 06/12/14 21:00:00 Notes: Same as: BD Posiflush Sterile Start Date: 05/14/14 Stop Date: 05/16/14 Status: Discontinued simvastatin 20 mg oral tablet 20 mg=1 tab, PO, Bedtime, # 30 tab, 0 Refill(s) Start Date: 05/16/14 Status: Ordered Results ELECTROLYTES 1 2 3 Most recent to oldest [Reference Range]: 139 mEq/L (05/15/14 10:30 AM) 138 mEq/L (05/14/14 11:42 PM) 141 mEq/L (05/14/14 1:15 AM) Sodium Lvl [135-145 mEq/L] 4.2 mEq/L (05/15/14 10:30 AM) 3.3 mEq/L *LOW* (05/14/14 11:42 PM) 3.4 mEq/L *LOW* (05/14/14 1:15 AM) Potassium Lvl [3.5-5.1 mEq/L] 106 mEq/L (05/15/14 10:30 AM) 105 mEq/L (05/14/14 11:42 PM) 104 mEq/L (05/14/14 1:15 AM) Chloride Lvl [95-109 mEq/L] 25 mEq/L (05/15/14 10:30 AM) 27 mEq/L (05/14/14 11:42 PM) 26 mEq/L (05/14/14 1:15 AM) CO2 [24-32 mEq/L] 12.2 mEq/L (05/15/14 10:30 AM) 9.3 mEq/L *LOW* (05/14/14 11:42 PM) 14.4 mEq/L (05/14/14 1:15 AM) AGAP [10.0-20.0 mEq/L] CHEM PANEL 1 2 3 Most recent to oldest [Reference Range]: 0.8 mg/dL (05/15/14 10:30 AM) 0.8 mg/dL (05/14/14 11:42 PM) 0.9 mg/dL (05/14/14 1:15 AM) Creatinine Lvl [0.5-1.4 mg/dL] 83 mL/min/1.73m2 1 *NA* (05/15/14 10:30 AM) 83 mL/min/1.73m2 2 *NA* (05/14/14 11:42 PM) 72 mL/min/1.73m2 3 *NA* (05/14/14 1:15 AM) eGFR 9 mg/dL (05/15/14 10:30 AM) 12 mg/dL (05/14/14 11:42 PM) 11 mg/dL (05/14/14 1:15 AM) BUN [7-22 mg/dL] 134 mg/dL 4 *HI* (05/15/14 10:30 AM) 114 mg/dL 5 *HI* (05/14/14 11:42 PM) 130 mg/dL 6 *HI* (05/14/14 1:15 AM) Glucose Lvl [70-99 mg/dL] 8.6 mg/dL (05/15/14 10:30 AM) 8.5 mg/dL (05/14/14 11:42 PM) 8.6 mg/dL (05/14/14 1:15 AM) Calcium Lvl [8.5-10.5 mg/dL] 1Result Comment: The eGFR is calculated using [...] from the National Kidney Disease Education Program ( NKDEP) which additionally recommends that when the eGFR is used in patients with extremes of body mass index for purposes of drug dosing, the eGFR should be mul tiplied by the estimated BMI. 2Result Comment: The eGFR is calculated using [...] from the National Kidney Disease Education Program ( NKDEP) which additionally recommends that when the eGFR is used in patients with extremes of body mass index for purposes of drug dosing, the eGFR should be mul tiplied by the estimated BMI. 3Result Comment: The eGFR is calculated using [...] from the National Kidney Disease Education Program ( NKDEP) which additionally recommends that when the eGFR is used in patients with extremes of body mass index for purposes of drug dosing, the eGFR should be mul tiplied by the estimated BMI. 4Interpretive Data: Adult reference range values reflect the clinical guidelines of the [place] [employer]. 5Interpretive Data: Adult reference range values reflect the clinical guidelines of the [place] [employer]. 6Interpretive Data: Adult reference range values reflect the clinical guidelines of the [place] [employer]. CARDIAC ENZYMES 1 2 3 Most recent to oldest [Reference Range]: 412 unit/L *HI* (05/14/14 3:20 PM) 323 unit/L *HI* (05/14/14 7:20 AM) 68 unit/L (05/14/14 1:15 AM) Total CK [12-191 unit/L] 33.4 ng/mL *HI* (05/14/14 3:20 PM) 23.4 ng/mL *HI* (05/14/14 7:20 AM) 1.0 ng/mL (05/14/14 1:15 AM) CK MB [0.5-3.6 ng/mL] 8.1 *HI* (05/14/14 3:20 PM) 7.2 *HI* (05/14/14 7:20 AM) 1.5 (05/14/14 1:15 AM) CK MB Index [0.0-2.5] 11.50 ng/mL 7 *CRIT* (05/14/14 11:42 PM) 16.10 ng/mL 8 *CRIT* (05/14/14 3:20 PM) 8.38 ng/mL 9 *CRIT* (05/14/14 7:20 AM) Troponin-I [0.00-0.40 ng/mL] 7Result Comment: Critical Result(s) called to Hermilo Padgett at 05/15/2014 01:49 by AD. Read back OK. 8Result Comment: Critical Result(s) called to ADA GUAJARDO at 05/14/2014 15:45 by CV. Read back OK. 9Result Comment: Critical Result(s) called to michelle at 05/14/2014 08:03 bynm. Read back OK. HEMATOLOGY 1 2 3 Most recent to oldest [Reference Range]: 8.3 K/CMM (05/15/14 10:30 AM) 8.2 K/CMM (05/14/14 11:42 PM) 12.1 K/CMM *HI* (05/14/14 1:15 AM) WBC [3.7-10.4 K/CMM] 4.02 M/CMM *LOW* (05/15/14 10:30 AM) 3.82 M/CMM *LOW* (05/14/14 11:42 PM) 4.43 M/CMM (05/14/14 1:15 AM) RBC [4.20-5.40 M/CMM] 13.1 g/dL (05/15/14 10:30 AM) 12.5 g/dL (05/14/14 11:42 PM) 14.1 g/dL (05/14/14 1:15 AM) Hgb [12.0-16.0 g/dL] 39.0 % (05/15/14 10:30 AM) 37.2 % (05/14/14 11:42 PM) 42.9 % (05/14/14 1:15 AM) Hct [36.0-48.0 %] 97.0 fL (05/15/14 10:30 AM) 97.3 fL (05/14/14 11:42 PM) 96.8 fL (05/14/14 1:15 AM) MCV [81.0-99.0 fL] 32.4 pg *HI* (05/15/14 10:30 AM) 32.6 pg *HI* (05/14/14 11:42 PM) 31.8 pg *HI* (05/14/14 1:15 AM) MCH [27.0-31.0 pg] 33.5 g/dL (05/15/14 10:30 AM) 33.5 g/dL (05/14/14 11:42 PM) 32.8 g/dL (05/14/14 1:15 AM) MCHC [32.0-36.0 g/dL] 14.0 % (05/15/14 10:30 AM) 14.0 % (05/14/14 11:42 PM) 13.8 % (05/14/14 1:15 AM) RDW [11.5-14.5 %] 155 K/CMM (05/15/14 10:30 AM) 161 K/CMM (05/14/14 11:42 PM) 239 K/CMM (05/14/14 1:15 AM) Platelet [133-450 K/CMM] 9.5 fL (05/15/14 10:30 AM) 9.7 fL (05/14/14 11:42 PM) 9.4 fL (05/14/14 1:15 AM) MPV [7.4-10.4 fL] 67.2 % (05/15/14 10:30 AM) 55.1 % (05/14/14 11:42 PM) 74.7 % (05/14/14 1:15 AM) Segs [45.0-75.0 %] 22.0 % (05/15/14 10:30 AM) 35.6 % (05/14/14 11:42 PM) 18.7 % *LOW* (05/14/14 1:15 AM) Lymphocytes [20.0-40.0 %] 9.0 % (05/15/14 10:30 AM) 7.8 % (05/14/14 11:42 PM) 5.4 % (05/14/14 1:15 AM) Monocytes [2.0-12.0 %] 0.8 % (05/15/14 10:30 AM) 1.1 % (05/14/14 11:42 PM) 0.9 % (05/14/14 1:15 AM) Eosinophils [0.0-4.0 %] 1.0 % (05/15/14 10:30 AM) 0.4 % (05/14/14 11:42 PM) 0.3 % (05/14/14 1:15 AM) Basophils [0.0-1.0 %] 5.6 K/CMM (05/15/14 10:30 AM) 4.5 K/CMM (05/14/14 11:42 PM) 9.0 K/CMM *HI* (05/14/14 1:15 AM) Segs-Bands # [1.5-8.1 K/CMM] 1.8 K/CMM (05/15/14 10:30 AM) 2.9 K/CMM (05/14/14 11:42 PM) 2.3 K/CMM (05/14/14 1:15 AM) Lymphocytes # [1.0-5.5 K/CMM] 0.8 K/CMM (05/15/14 10:30 AM) 0.6 K/CMM (05/14/14 11:42 PM) 0.7 K/CMM (05/14/14 1:15 AM) Monocytes # [0.0-0.8 K/CMM] 0.1 K/CMM (05/15/14 10:30 AM) 0.1 K/CMM (05/14/14 11:42 PM) 0.1 K/CMM (05/14/14 1:15 AM) Eosinophils # [0.0-0.5 K/CMM] 0.1 K/CMM (05/15/14 10:30 AM) Basophils # [0.0-0.2 K/CMM] Medications Administered During Your Visit No data available for this section Immunizations No data available for this section Procedures Procedure Type Body Site Date of Procedure Related Diagnosis section Tonsillectomy Social History Social History Type Response Alcohol Use: Current, Type: Beer, Type: Wine, Frequency: 1-2 times per week, Has alcohol use interfered with work or home life? No, Do you ever drink more than intended? No, Has anyone been hurt or at risk by your drinking? No, Ready to change: No, Concerns about alcohol use in household: No Smoking Status Current every day smoker, Type: Cigarettes, Previous treatment: None, Ready to change: No, Concerns about tobacco use in household: No, Exposure to Tobacco Smoke Lives with someone who smokes, Cigarette Smoking Last 365 Days Yes, Reg Smoking Cessation Counseling Yes
--- OUTSIDE RECORDS SUMMARY | 2019-02-10 20:29 | XMS REPORT ---
Author Author Brittany Marx [facility] eClinicalWorks Address Unknown Phone Unavailable Care Team Providers Care Kettle Operator Name Role Phone Brittany Marx Unavailable Encounters Encounter Location Date Unknown [facility] May 21, 2014 hospital follow up [facility] May 03, 2015 Refill [facility] Jul 09, 2015 Refill and also NST work up [facility] Jul 27, 2015 Unknown [facility] Jul 09, 2013 LUMP IN BREAST [facility] Aug 05, 2013 CHEST CONGESTION [facility] Oct 02, 2013 Unknown [facility] Dec 08, 2015 Refill [facility] Aug 17, 2015 Refill [facility] Aug 19, 2015 Unknown [facility] Dec 17, 2015 Unknown [facility] Sep 11, 2016 echo/carotid/arterial dopplers [place] [facility] [place] [place] December 30, 2015 Unknown [facility] February 01, 2016 pharmacy change [facility] February 21, 2016 hosp fu [facility] Dec 08, 2015 medication [facility] January 05, 2016 Problems Problem Type Condition ICD-9 Code Onset Dates Condition Status Problem Essential (primary) hypertension I10 Active Problem Vitamin D deficiency E55.9 Active Problem Coronary atherosclerosis of [place] coronary artery I25.10 Active Problem Normal body mass index Z78.9 Active Problem History of CVA (cerebrovascular accident) Z86.73 Active Problem Tobacco use Z72.0 Active Problem Transient cerebral ischemia G45.9 Active Problem HTN (hypertension), benign 401.1 Active Problem History of [place] (myocardial infarction) I25.2 Active Problem Smoker F17.200 Active Problem Grade III hemorrhoids K64.2 Active Problem Diverticulitis of large intestine without perforation or abscess without bleeding K57.32 Active Problem Mixed hyperlipidemia E78.2 Active Medications Medication Code System Code Instructions Start Date End Date Status Dosage Plavix MEDISPAN [address]-45 75 MG Orally Once a day LAST REFILL, MUST SEE DOCTOR Active 1 tablet Social History Social History Element Qualifiers Date Reported children . 1 Dec 08, 2015 Tobacco Use: . Are you a: current smoker 15 cigs a day Dec 08, 2015 Marital Status: . Dec 08, 2015 Do you drink alcohol? . 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
--- OUTSIDE RECORDS SUMMARY | 2019-02-10 20:29 | XMS REPORT ---
Author Author Brittany Heller [facility] eClinicalWorks Address Unknown Phone Unavailable Care Team Providers Care Security System Installer Name Role Phone Brittany Heller CP Unavailable Encounters Encounter Location Date Unknown [facility] May 21, 2014 Unknown [facility] Jul 09, 2013 LUMP IN BREAST [facility] Aug 05, 2013 CHEST CONGESTION [facility] Oct 02, 2013 Problems Problem Type Condition ICD-9 Code Onset Dates Condition Status Problem Diverticulitis 562.11 Active Problem Grade III hemorrhoids 455.8 Active Problem Vitamin d deficiency 268.9 Active Problem CAD (Coronary atherosclerosis of [place] coronary artery) 414.01 Active Problem Elevated CEA 795.81 Active Problem CVA 434.91 Active Problem Nicotine addiction /use (Tobacco Use (Nondependent tobacco use disorder)) 305.1 Active Problem HTN (Unspecified essential hypertension) 401.9 Active Problem Hyperlipidemia (Mixed hyperlipidemia) 272.2 Active Social History Social History Element Qualifiers Date Reported children . 1 Oct 02, 2013 Tobacco Use: . Are you a: current smoker 15 cigs a day Oct 02, 2013 Marital Status: . Oct 02, 2013 Do you drink alcohol? . 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
--- OUTSIDE RECORDS SUMMARY | 2019-02-10 20:29 | XMS REPORT ---
Author Author Alcira De La Rosa eClinicalWorks Address Unknown Phone Unavailable Care Team Providers Care Apprentice/Lineman Name Role Phone Alcira De La Rosa CP Unavailable Allergies, Adverse Reactions, Alerts Substance Reaction Event Type Ativan Info Not Available Drug Allergy Encounters Encounter Location Date Unknown [facility] May 21, 2014 hospital follow up [facility] May 03, 2015 Refill [facility] Jul 09, 2015 Refill and also NST work up [facility] Jul 27, 2015 Unknown [facility] Jul 09, 2013 hosp fu [facility] Dec 08, 2015 LUMP IN BREAST [facility] Aug 05, 2013 CHEST CONGESTION [facility] Oct 02, 2013 Unknown [facility] Dec 08, 2015 Refill [facility] Aug 17, 2015 Refill [facility] Aug 19, 2015 Problems Problem Type Condition ICD-9 Code Onset Dates Condition Status Problem Essential (primary) hypertension I10 Active Problem Vitamin D deficiency E55.9 Active Problem Coronary atherosclerosis of [place] coronary artery I25.10 Active Problem Normal body mass index Z78.9 Active Problem History of CVA (cerebrovascular accident) Z86.73 Active Problem Tobacco use Z72.0 Active Problem Transient cerebral ischemia G45.9 Active Problem HTN (hypertension), benign 401.1 Active Problem History of [place] (myocardial infarction) I25.2 Active Problem Smoker F17.200 Active Assessment Encounter for tobacco use cessation counseling Z71.6 Active Assessment Tobacco use Z72.0 Active Assessment Normal body mass index Z78.9 Active Assessment Coronary atherosclerosis of [place] coronary artery I25.10 Active Problem Grade III hemorrhoids K64.2 Active Assessment Essential (primary) hypertension I10 Active Problem Diverticulitis of large intestine without perforation or abscess without bleeding K57.32 Active Assessment Mixed hyperlipidemia E78.2 Active Problem Mixed hyperlipidemia E78.2 Active Medications Medication Code System Code Instructions Start Date End Date Status Dosage Tenormin MEDISPAN [address]-33 50 mg Orally twice a day (bid) February 03, 2013 Active 1 tablet Zetia [facility] [address]-66 10 mg Orally Once a day Jun 18, 2013 Inactive 1 tablet Nitroglycerin [facility] [address]-38 0.4 MG Sublingual Active Unknown Plavix [facility] [address]-63 75 mg Orally Once a day Active 1 tablet Chantix Starting Month Mark [facility] [address]-11 0.5 MG X 11 & 1 MG X 42 Orally as directed Dec 08, 2015 January 06, 2016 Active as directed Lipitor [facility] [address]-91 80 mg Orally Once a day February 28, 2013 Inactive 1 tablet Social History Social History Element Qualifiers Date Reported children . 1 Dec 09, 2015 Tobacco Use: . Are you a: current smoker 15 cigs a day Dec 09, 2015 Marital Status: . Dec 09, 2015 Do you drink alcohol? . 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
--- OUTSIDE RECORDS SUMMARY | 2019-02-10 20:29 | XMS REPORT ---
Author Author Kina Shaver Organization eClinicalWorks Address Unknown Phone Unavailable Care Team Providers Care Plastic Battery Assembler Name Role Phone Kina Shaver CP Unavailable Encounters Encounter Location Date Unknown [facility] Jul 09, 2013 Problems Problem Type Condition ICD-9 Code Onset Dates Condition Status Problem Vitamin d deficiency 268.9 Active Problem CAD (Coronary atherosclerosis of [place] coronary artery) 414.01 Active Problem Elevated CEA 795.81 Active Problem CVA 434.91 Active Problem Nicotine addiction /use (Tobacco Use (Nondependent tobacco use disorder)) 305.1 Active Problem HTN (Unspecified essential hypertension) 401.9 Active Problem Hyperlipidemia (Mixed hyperlipidemia) 272.2 Active Medications Medication Code System Code Instructions Start Date End Date Status Dosage Estratest MULTUM 1644 1.25-2.5 MG Orally Daily for Three Weeks, 1 Week off Jun 18, 2013 Inactive 1 tablet with food Estradiol [facility] [address]-89 1 MG Orally daily Jul 09, 2013 Active 1 tablet Social History Social History Element Qualifiers Date Reported children . 1 Jun 18, 2013 Tobacco Use: . Are you a: current smoker 15 cigs a day Jun 18, 2013 Marital Status: . Jun 18, 2013 Do you drink alcohol? . 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
--- OUTSIDE RECORDS SUMMARY | 2019-02-10 20:29 | XMS REPORT | Summary of Care ---
Author Organization Unknown Address Unknown Phone Unavailable Encounter DAVID Keane(PILI) [id number] Date(s): 07/11/14 - 07/11/14 [facility] [address] Discharge Diagnosis: Pain, dental Discharge Disposition: Home Physician Attending: Trey Ledesma MD Reason for Visit TOOTH ACHE Vital Signs Most recent to 1 2 oldest [Reference Range]: Height 165.1 cm (07/11/14 2:22 AM) Temperature Oral 97.8 DegF 97.8 DegF [96.4-99.1 DegF] (07/11/14 3:24 AM) (07/11/14 2:22 AM) Systolic Blood 166 mmHg 172 mmHg Pressure [90-140 *HI* *HI* mmHg] (07/11/14 3:24 AM) (07/11/14 2:22 AM) Diastolic Blood 72 mmHg 84 mmHg Pressure [60-90 (07/11/14 3:24 AM) (07/11/14 2:22 AM) mmHg] Respiratory Rate 20 BRMIN 20 BRMIN [14-20 BRMIN] (07/11/14 3:24 AM) (07/11/14 2:22 AM) Peripheral Pulse 72 bpm 77 bpm Rate [60-100 bpm] (07/11/14 3:24 AM) (07/11/14 2:22 AM) Weight 59.091 kg (07/11/14 2:22 AM) Body Mass Index 21.68 m2 (07/11/14 2:22 AM) Problem List Condition Effective Dates Status Health Status Informant HTN - Active Hypertension(Confirm ed) Hyperlipidemia(Confi Resolved rmed) [place] - Myocardial Resolved infarction(Confirmed ) TIA(Confirmed) Resolved Allergies, Adverse Reactions, Alerts Substance Reaction Severity Status Ativan Active Phenergan Active Medications [place] 5/325 oral tablet 1-2 tab, PO, Q4-6H, Pain, # 10 tab, 0 Refill(s) Start Date: 07/11/14 Stop Date: 07/16/14 Status: Ordered penicillin V potassium 500 mg oral tablet 500 mg=1 tab, PO, Q6H, # 40 tab, 0 Refill(s) Start Date: 07/11/14 Stop Date: 07/21/14 Status: Ordered Medications Administered During Your Visit No data available for this section Immunizations No data available for this section Social History Social History Type Response Alcohol [...]
--- OUTSIDE RECORDS SUMMARY | 2019-02-10 20:29 | XMS REPORT ---
Author Author Serene Keller [facility] eClinicalWorks Address Unknown Phone Unavailable Care Team Providers Care Event Promotions Coordinator Name Role Phone Serene Keller Unavailable Encounters Encounter Location Date Unknown [facility] May 21, 2014 hospital follow up [facility] May 03, 2015 Refill [facility] Jul 09, 2015 Refill and also NST work up [facility] Jul 27, 2015 Unknown [facility] Jul 09, 2013 LUMP IN BREAST [facility] Aug 05, 2013 CHEST CONGESTION [facility] Oct 02, 2013 Unknown [facility] Dec 08, 2015 Refill [facility] Aug 17, 2015 Refill [facility] Aug 19, 2015 echo/carotid/arterial dopplers [place] December 30, 2015 Unknown [facility] February 01, 2016 pharmacy change [facility] February 21, 2016 hosp fu [facility] Dec 08, 2015 medication [facility] January 05, 2016 Problems Problem Type Condition ICD-9 Code Onset Dates Condition Status Problem Essential (primary) hypertension I10 Active Problem Vitamin D deficiency E55.9 Active Problem Coronary atherosclerosis of [place] coronary artery I25.10 Active Problem Normal body mass index Z78.9 Active Problem History of CVA (cerebrovascular accident) Z86.73 Active Problem Tobacco use Z72.0 Active Problem Transient cerebral ischemia G45.9 Active Problem HTN (hypertension), benign 401.1 Active Problem History of [place] (myocardial infarction) I25.2 Active Problem Smoker F17.200 Active Problem Grade III hemorrhoids K64.2 Active Problem Diverticulitis of large intestine without perforation or abscess without bleeding K57.32 Active Problem Mixed hyperlipidemia E78.2 Active Medications Medication Code System Code Instructions Start Date End Date Status Dosage Plavix MEDISPAN [address]-63 75 mg Orally Once a day Active 1 tablet Social History Social History Element Qualifiers Date Reported children . 1 Dec 09, 2015 Tobacco Use: . Are you a: current smoker 15 cigs a day Dec 09, 2015 Marital Status: . Dec 09, 2015 Do you drink alcohol? . 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
--- OUTSIDE RECORDS SUMMARY | 2019-02-10 20:29 | XMS REPORT ---
Author Author Tess Posey [facility] eClinicalWorks Address Unknown Phone Unavailable Care Team Providers Care Returned Item Clerk Name Role Phone Tess Posey CP Unavailable Allergies, Adverse Reactions, Alerts Substance Reaction Event Type Phenergan Info Not Available Drug Allergy Ativan Info Not Available Drug Allergy Encounters Encounter Location Date Unknown [facility] May 21, 2014 hospital follow up [facility] May 03, 2015 Refill [facility] Jul 09, 2015 Refill and also NST work up [facility] Jul 27, 2015 Unknown [facility] Jul 09, 2013 LUMP IN BREAST [facility] Aug 05, 2013 CHEST CONGESTION [facility] Oct 02, 2013 Unknown [facility] Dec 08, 2015 Refill [facility] Aug 17, 2015 Refill [facility] Aug 19, 2015 echo/carotid/arterial dopplers [place] [place] December 30, 2015 Unknown [facility] [place] Dec 17, 2015 Unknown [facility] February 01, 2016 pharmacy change [facility] February 21, 2016 hosp fu [facility] Dec 08, 2015 medication [facility] January 05, 2016 Problems Problem Type Condition ICD-9 Code Onset Dates Condition Status Assessment CAD without angina I25.10 Active Assessment Bruit R09.89 Active Assessment Chest pain, unspecified R07.9 Active Assessment Peripheral vascular disease, unspecified I73.9 Active Assessment Tobacco use Z72.0 Active Assessment PCI status Z98.61 Active Assessment Pure hypercholesterolemia E78.0 Active Medications Medication Code System Code Instructions Start Date End Date Status Dosage Nitroglycerin MEDISPAN [address]-91 Sublingual as needed (prn) Active Unknown Atenolol MEDISPAN [address]-53 50 mg Orally twice a day (bid) Active 1 tablet Plavix [facility] [address]-37 75 MG Orally Once a day Active 1 tablet Lipitor [facility] [address]-59 80 MG Orally Once a day Active 1 tablet Aspirin [facility] 576[address]266 81 MG Orally Once a day Active 1 tablet Social History Social History Element Qualifiers Date Reported Tobacco Use: . Are you a: current smoker March 29, 2016 Do you drink alcohol? . Status: Yes March 29, 2016 Vital Signs Date/Time: Dec 17, 2015 Weight 142 lbs Cardiac Monitoring Heart Rate 54 /min Blood Pressure Diastolic 55 mm Hg Blood Pressure Systolic 115 mm Hg Summary Purpose eClinicalWorks Submission
--- OUTSIDE RECORDS SUMMARY | 2019-02-10 20:29 | XMS REPORT ---
Author Author Brittany Marx Organization eClinicalWorks Address Unknown Phone Unavailable Care Team Providers Care Bag Filler Machine Operator Name Role Phone Brittany Marx CP Unavailable Encounters Encounter Location Date Unknown [facility] May 21, [address] [facility] May 03, [address] [facility] Jul 09, 2015 Refill and also NST work up [facility] Jul 27, [address] [facility] Jul 09, 2013 hosp fu [facility] Dec 08, 2015 LUMP IN BREAST [facility] Aug 05, 2013 CHEST CONGESTION [facility] Oct 02, 2013 Unknown [facility] Dec 08, 2015 Refill [facility] Aug 17, [address] [facility] Aug 19, 2015 Problems Problem Type Condition ICD-9 Code Onset Dates Condition Status Problem Essential (primary) hypertension I10 Active Problem Vitamin D deficiency E55.9 Active Problem Coronary atherosclerosis of [place] coronary artery I25.10 Active Problem Normal body mass index Z78.9 Active Problem History of CVA (cerebrovascular accident) Z86.73 Active Problem Tobacco use Z72.0 Active Problem Transient cerebral ischemia G45.9 Active Problem HTN (hypertension), benign 401.1 Active Problem History of [place] (myocardial infarction) I25.2 Active Problem Smoker F17.200 [...] Type: Socially Dec 09, 2015 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
--- OUTSIDE RECORDS SUMMARY | 2019-02-10 20:29 | XMS REPORT ---
Author Author Brittany Marx [facility] eClinicalWorks Address Unknown Phone Unavailable Care Team Providers Care Blow Mold Machine Operator Name Role Phone Brittany Marx CP Unavailable Allergies No Known Allergies Problems Problem Type Condition Code Onset Dates Condition Status Problem Mixed hyperlipidemia E78.2 Active Problem Coronary atherosclerosis of [place] coronary artery I25.10 Active Problem Essential (primary) hypertension I10 Active Problem Normal body mass index Z78.9 Active Problem History of CVA (cerebrovascular accident) Z86.73 Active Problem Tobacco use Z72.0 Active Problem Transient cerebral ischemia G45.9 Active Problem Vitamin D deficiency E55.9 Active Problem History of [place] (myocardial infarction) I25.2 Active Problem Smoker F17.200 Active Assessment Coronary atherosclerosis of [place] coronary artery I25.10 Active Problem Grade III hemorrhoids K64.2 Active Problem Diverticulitis of large intestine without perforation or abscess without bleeding K57.32 Active Medications Medication Code System Code Instructions Start Date End Date Status Dosage Plavix [facility] [address]-14 75 MG Orally once a day Active 1 tablet Results No Known Results Summary Purpose eClinicalWorks Submission
--- OUTSIDE RECORDS SUMMARY | 2019-02-10 20:29 | XMS REPORT | Summary of Care ---
Author Author [facility] Organization [facility] Address Unknown Phone Unavailable Encounter DAVID Keane(PILI) [id number] Date(s): 11/30/15 - 12/01/15 [facility] [address] [place] [address]- [phone] Discharge Disposition: Home Attending Physician: Serene Keller MD Admitting Physician: Serene Keller MD Vital Signs 1 2 3 Most recent to oldest [Reference Range]: 165.1 cm (11/30/15 8:04 PM) Height 98.4 DegF (12/01/15 3:43 PM) 98.4 DegF (12/01/15 12:01 PM) 98.2 DegF (12/01/15 7:41 AM) Temperature Oral [96.4-99.1 DegF] 135/78 mmHg (12/01/15 3:43 PM) 137/87 mmHg (12/01/15 12:01 PM) 131/76 mmHg (12/01/15 7:41 AM) Blood Pressure [90-140/60-90 mmHg] 18 BRMIN (12/01/15 3:43 PM) 18 BRMIN (12/01/15 12:01 PM) 18 BRMIN (12/01/15 7:41 AM) Respiratory Rate [14-20 BRMIN] 53 bpm *LOW* (12/01/15 3:43 PM) 51 bpm *LOW* (12/01/15 12:01 PM) 59 bpm *LOW* (12/01/15 7:41 AM) Peripheral Pulse Rate [60-100 bpm] 65.114 kg (11/30/15 8:04 PM) 64.636 kg (11/30/15 6:55 PM) 64.636 kg (11/30/15 6:50 PM) Weight 23.89 m2 (11/30/15 8:04 PM) Body Mass Index Problem List Condition Effective Dates Status Health Status Informant HTN - Active Hypertension(Confirm ed) Hyperlipidemia(Confi Resolved rmed) [place] - Myocardial Resolved infarction(Confirmed ) TIA(Confirmed) Resolved Allergies, Adverse Reactions, Alerts Substance Reaction Severity Status Ativan Active Phenergan Active Medications aspirin 325 mg tablet 325 mg, 1 tab, Route: PO, Drug form: TAB, ONCE, Dosing Weight 59.091, kg, Start date: 11/30/15 18:50:00, Stop date: 11/30/15 18:50:00 Notes: Take with food. Start Date: 11/30/15 Stop Date: 11/30/15 Status: Completed atenolol 50 mg, PO, BID, 0 Refill(s) Start Date: 12/01/15 Status: Ordered atenolol 25 mg oral tablet 25 mg, 1 tab, Route: PO, Drug form: TAB, Daily, Dosing Weight 65.114, kg, Start date: 12/02/15 9:00:00, Duration: 30 day, Stop date: 12/31/15 9:00:00 Notes: (Same As:Tenormin) Start Date: 12/02/15 Stop Date: 12/01/15 Status: Canceled Lipitor 40 mg, 1 tab, Route: PO, Drug form: TAB, Bedtime, Dosing Weight 65.114, kg, Star t date: 12/01/15 21:00:00, Duration: 30 day, Stop date: 12/30/15 21:00:00 Notes: (Same as: Lipitor) Start Date: 12/01/15 Stop Date: 12/01/15 Status: Canceled Lipitor 40 mg oral tablet 40 mg=1 tab, PO, Bedtime, 0 Refill(s) Start Date: 12/01/15 Status: Ordered nitroglycerin SL Tab 0.4 mg, 1 tab, Route: SL, Drug form: TAB, Q5Min, Dosing Weight 59.091, kg, PRN C hest Pain, Start date: 11/30/15 18:50:00, Duration: 3 doses or times, Stop date: Limited # of times Notes: (Same as:Nitroquick, Nitrostat)"Do Not Crush" Sublingual tablet Start Date: 11/30/15 Stop Date: 12/01/15 Status: Discontinued Plavix 75 mg, 1 tab, Route: PO, Drug form: TAB, Daily, Dosing Weight 65.114, kg, Start date: 12/02/15 9:00:00, Duration: 30 day, Stop date: 12/31/15 9:00:00 Notes: (Same As: Plavix) Start Date: 12/02/15 Stop Date: 12/01/15 Status: Canceled Plavix 75 mg oral tablet 75 mg=1 tab, PO, Daily, # 30 tab, 0 Refill(s) Start Date: 12/01/15 Status: Ordered Saline Flush 0.9% 10 ml, Route: IVP, Drug Form: INJ, Dosing Weight 59.091, kg, PRN, PRN Line Flush , Start date: 11/30/15 18:50:00, Duration: 30 day, Stop date: 12/30/15 18:49:00 Notes: (Same as: BD Posiflush) Start Date: 11/30/15 Stop Date: 12/01/15 Status: Discontinued Saline Flush 0.9% 10 ml, Route: IVP, Drug Form: INJ, Dosing Weight 59.091, kg, Q12H, Start date: 0 11/30/15 21:00:00, Duration: 30 day, Stop date: 12/30/15 9:00:00 Notes: (Same as: BD Posiflush) Start Date: 11/30/15 Stop Date: 12/01/15 Status: Discontinued simvastatin PO, Bedtime, 0 Refill(s) Start Date: 12/01/15 Stop Date: 12/01/15 Status: Discontinued Results ELECTROLYTES Most recent to 1 2 oldest [Reference Range]: Sodium Lvl [135-145 141 mEq/L mEq/L] (11/30/15 9:19 PM) Potassium Lvl 3.8 mEq/L [3.5-5.1 mEq/L] (11/30/15 9:19 PM) Chloride Lvl [95-109 108 mEq/L mEq/L] (11/30/15 9:19 PM) CO2 [24-32 mEq/L] 28 mEq/L (11/30/15 9:19 PM) AGAP [10.0-20.0 8.8 mEq/L mEq/L] *LOW* (11/30/15 9:19 PM) CHEM PANEL Most recent to 1 oldest [Reference Range]: Creatinine Lvl 0.81 mg/dL [0.50-1.40 mg/dL] (11/30/15 9:19 PM) eGFR 81 mL/min/1.73m2 1 *NA* (11/30/15 9:19 PM) BUN [7-22 mg/dL] 15 mg/dL (11/30/15 9:19 PM) Glucose Lvl [70-99 129 mg/dL mg/dL] *HI* (11/30/15 9:19 PM) Calcium Lvl 8.5 mg/dL [8.5-10.5 mg/dL] (11/30/15 9:19 PM) 1Result Comment: The eGFR is calculated using [...] be mul tiplied by the estimated BMI. CARDIAC ENZYMES Most recent to 1 oldest [Reference Range]: Total CK [12-191 64 unit/L 60 unit/L unit/L] (12/01/15 3:57 AM) (11/30/15 9:19 PM) Troponin-I <0.02 ng/mL <0.02 ng/mL [0.00-0.40 ng/mL] (12/01/15 3:57 AM) (11/30/15 9:19 PM) LIPIDS Most recent to 1 oldest [Reference Range]: CHD Risk [3.90-5.80] 4.26 (11/30/15 9:19 PM) Chol [<=199 mg/dL] 247 mg/dL *HI* (11/30/15 9:19 PM) Trig [<=149 mg/dL] 78 mg/dL (11/30/15 9:19 PM) HDL [>=61 mg/dL] 58 mg/dL *LOW* (11/30/15:19 PM) LDL (Calculated) 173 mg/dL [<=99 mg/dL] *HI* (11/30/15 9:19 PM) VLDL 16 *NA* (11/30/1519 PM) HEMATOLOGY Most recent to 1 2 oldest [Reference Range]: WBC [3.7-10.4 K/CMM] 7.1 K/CMM (11/30/15 9:19 PM) RBC [4.20-5.40 4.05 M/CMM M/CMM] *LOW* (11/30/15:19 PM) Hgb [12.0-16.0 g/dL] 12.7 g/dL (11/30/15:19 PM) Hct [36.0-48.0 %] 38.9 % (11/30/15 9:19 PM) MCV [80.0-98.0 fL] 96.2 fL (11/30/15 9:19 PM) MCH [27.0-31.0 pg] 31.4 pg *HI* (11/30/15 9:19 PM) MCHC [32.0-36.0 32.7 g/dL g/dL] (11/30/15:19 PM) RDW [11.5-14.5 %] 13.2 % (11/30/15:19 PM) Platelet [133-450 201 K/CMM K/CMM] (11/30/15 9:19 PM) MPV [7.4-10.4 fL] 8.9 fL (11/30/15 9:19 PM) Segs [45.0-75.0 %] 47.8 % (11/30/15 9:19 PM) Lymphocytes 37.9 % [20.0-40.0 %] (11/30/15 9:19 PM) Monocytes [2.0-12.0 10.2 % %] (11/30/15:19 PM) Eosinophils [0.0-4.0 3.3 % %] (11/30/15 9:19 PM) Basophils [0.0-1.0 0.8 % %] (11/30/15 9:19 PM) Segs-Bands # 3.4 K/CMM [1.5-8.1 K/CMM] (11/30/15 9:19 PM) Lymphocytes # 2.7 K/CMM [1.0-5.5 K/CMM] (11/30/15 9:19 PM) Monocytes # [0.0-0.8 0.7 K/CMM K/CMM] (11/30/15 9:19 PM) Eosinophils # 0.2 K/CMM [0.0-0.5 K/CMM] (11/30/15 9:19 PM) Basophils # [0.0-0.2 0.1 K/CMM K/CMM] (11/30/15 9:19 PM) PT [12.0-14.7 14.2 seconds seconds] (11/30/15 9:19 PM) INR [0.85-1.17] 1.07 (11/30/15 9:19 PM) PTT [22.9-35.8 29.4 seconds seconds] (11/30/15 9:19 PM) Immunizations No data available for this section [...]
--- OUTSIDE RECORDS SUMMARY | 2019-02-10 20:29 | XMS REPORT | Summary of Care ---
Author Author [facility] Organization [facility] Address Unknown Phone Unavailable Encounter HQ Diya(FIN) [id number] Date(s): 01/30/17 - 01/30/17 [facility] [address] [place] [address]- Discharge Disposition: Home or Self Care Attending Physician: Serene Keller MD Referring Physician: Serene Keller MD Vital Signs No data available for this section Problem List Condition Effective Dates Status Health Status Informant HTN - Active Hypertension(Confirm ed) Hyperlipidemia(Confi Resolved rmed) [place] - Myocardial Resolved infarction(Confirmed ) TIA(Confirmed) Resolved [...]
--- OUTSIDE RECORDS SUMMARY | 2019-02-10 20:29 | XMS REPORT ---
Author Author Tomasa Barroso Organization [employer] Address Unknown Phone Unavailable Care Team Providers Care Carbon Coating Machine Operator Name Role Phone Tomasa Barroso CP Unavailable Allergies, Adverse Reactions, Alerts Substance Reaction Event Type Ativan Info Not Available Drug Allergy Problems Problem Type Condition Code Onset Dates Condition Status Problem Mixed hyperlipidemia E78.2 Active Problem Coronary atherosclerosis of [place] coronary artery I25.10 Active Problem Essential (primary) hypertension I10 Active Problem Normal body mass index Z78.9 Active Problem History of CVA (cerebrovascular accident) Z86.73 Active Problem Tobacco use Z72.0 Active Problem Transient cerebral ischemia G45.9 Active Problem Vitamin D deficiency E55.9 Active Problem History of [place] (myocardial infarction) I25.2 Active Problem Smoker F17.200 Active Assessment Neck pain M54.2 Active Assessment Essential (primary) hypertension I10 Active Problem Grade III hemorrhoids K64.2 Active Problem Diverticulitis of large intestine without perforation or abscess without bleeding K57.32 Active Medications Medication Code System Code Instructions Start Date End Date Status Dosage Cyclobenzaprine HCl [facility] [address]-60 10 MG Orally one before bedtime daily Jun 11, 2017 Jul 11, 2017 Active 1 tablet as needed Tenormin [facility] [address]-74 50 mg Orally twice a day (bid) February 03, 2013 Active 1 tablet Naproxen [facility] [address]-03 375 MG Orally Twice a day Jun 11, 2017 Jul 11, 2017 Active 1 tablet Nitroglycerin [facility] [address]-76 0.4 MG Sublingual Active not defined Plavix [facility] [address]-08 75 MG Orally once a day Active 1 tablet Vital Signs Date/Time: Jun 11, 2017 BMI 22.13 Index Weight 133 lbs Height 65 in Cardiac Monitoring Heart Rate 51 /min Blood Pressure Diastolic 70 mm Hg Blood Pressure Systolic 150 mm Hg Results Name Result Date Reference Range Unit Abnormality Flag Spine cervical 4 views- Xray Summary Purpose [employer] Submission
--- OUTSIDE RECORDS SUMMARY | 2019-02-10 20:29 | XMS REPORT ---
Author Author Brittany Marx [facility] [employer] Address Unknown Phone Unavailable Care Team Providers Care Crime Lab Analyst Name Role Phone Brittany Marx Unavailable Encounters Encounter Location Date Unknown [facility] May 21, 2014 hospital follow up [facility] May 03, 2015 Refill [facility] Jul 09, 2015 Refill and also NST work up [facility] Jul 27, 2015 Unknown [facility] Jul 09, 2013 LUMP IN BREAST [facility] Aug 05, 2013 CHEST CONGESTION [facility] Oct 02, 2013 Unknown [facility] Dec 08, 2015 Refill [facility] Aug 17, 2015 Refill [facility] Aug 19, 2015 echo/carotid/arterial dopplers [place] December 30, 2015 Unknown [facility] Dec 17, 2015 Unknown [facility] Sep 11, 2016 Unknown [facility] Nov 28, 2016 Unknown [facility] February 01, 2016 pharmacy change [facility] February 21, 2016 hosp fu [facility] Dec 08, 2015 medication [facility] January 05, 2016 Problems Problem Type Condition ICD-9 Code Onset Dates Condition Status Problem Essential (primary) hypertension I10 Active Problem Vitamin D deficiency E55.9 Active Problem Coronary atherosclerosis of [place] coronary artery I25.10 Active Problem Normal body mass index Z78.9 Active Problem History of CVA (cerebrovascular accident) Z86.73 Active Problem Tobacco use Z72.0 Active Problem Transient cerebral ischemia G45.9 Active Problem HTN (hypertension), benign 401.1 Active Problem History of [place] (myocardial infarction) I25.2 Active Problem Smoker F17.200 Active Problem Grade III hemorrhoids K64.2 Active Problem Diverticulitis of large intestine without perforation or abscess without bleeding K57.32 Active Problem Mixed hyperlipidemia E78.2 Active Medications Medication Code System Code Instructions Start Date End Date Status Dosage Plavix [facility] [address]-24 75 MG Orally Once a day LAST REFILL, MUST SEE DOCTOR Active 1 tablet Social History Social History Element Qualifiers Date Reported children . 1 Dec 08, 2015 Tobacco Use: . Are you a: current smoker 15 cigs a day Dec 08, 2015 Marital Status: . Dec 08, 2015 Do you drink alcohol? . 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
--- OUTSIDE RECORDS SUMMARY | 2019-02-10 20:29 | XMS REPORT ---
Author Author Serene Keller [facility] [employer] Address Unknown Phone Unavailable Care Team Providers Care General Pediatrician Name Role Phone Serene Keller CP Unavailable Allergies, Adverse Reactions, Alerts Substance Reaction Event Type Ativan Info Not Available Drug Allergy Encounters Encounter Location Date Unknown [facility] May 21, 2014 hospital follow up [facility] May 03, 2015 Unknown [facility] Jul 09, 2013 LUMP IN BREAST [facility] Aug 05, 2013 CHEST CONGESTION [facility] Oct 02, 2013 Problems Problem Type Condition ICD-9 Code Onset Dates Condition Status Problem Diverticulitis 562.11 Active Problem CVA 434.91 Active Problem Nicotine addiction /use (Tobacco Use (Nondependent tobacco use disorder)) 305.1 Active Problem HTN (hypertension), benign 401.1 Active Problem Elevated CEA 795.81 Active Problem TIA (transient ischemic attack) 435.9 Active Problem HTN (Unspecified essential hypertension) 401.9 Active Problem Hyperlipidemia (Mixed hyperlipidemia) 272.2 Active Problem Vitamin d deficiency 268.9 Active Problem CAD (Coronary atherosclerosis of [place] coronary artery) 414.01 Active Assessment Hyperlipidemia (Mixed hyperlipidemia) 272.2 Active Assessment Consumes alcohol weekly 303.90 Active Assessment HTN (hypertension), benign 401.1 Active Assessment TIA (transient ischemic attack) 435.9 Active Assessment Nicotine addiction /use (Tobacco Use (Nondependent tobacco use disorder)) 305.1 Active Assessment Hospital discharge follow-up V67.59 Active Assessment CAD (Coronary atherosclerosis of [place] coronary artery) 414.01 Active Problem Grade III hemorrhoids 455.8 Active Medications Medication Code System Code Instructions Start Date End Date Status Dosage Zetia MEDISPAN [address]-72 10 mg Orally Once a day Jun 18, 2013 Active 1 tablet Plavix [facility] [address]-56 75 MG Orally Once a day Active 1 tablet Lipitor [facility] [address]-14 80 mg Orally Once a day February 28, 2013 Active 1 tablet Estradiol [facility] [address]-38 1 MG Orally daily Jul 09, 2013 Active 1 tablet Lipitor [facility] [address]-88 80 mg Orally Once a day February 28, 2013 Active 1 tablet Metoprolol Tartrate [facility] [address]-44 5 MG/5ML Intravenous every 12 hrs Active 5 ml Zetia [facility] [address]-07 10 mg Orally Once a day Jun 18, 2013 Active 1 tablet Tenormin [facility] [address]-41 50 mg Orally twice a day (bid) February 03, 2013 Active 1 tablet Social History Social History Element Qualifiers Date Reported children . 1 May 03, 2015 Tobacco Use: . Are you a: current smoker 15 cigs a day May 03, 2015 Marital Status: . May 03, 2015 Do you drink alcohol? . 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
--- OUTSIDE RECORDS SUMMARY | 2019-02-10 20:29 | XMS REPORT ---
Author Author Serene Keller [facility] Address Unknown Phone Unavailable Care Team Providers Care Dump Truck Operator Name Role Phone Serene Keller Unavailable Encounters Encounter Location Date Unknown [facility] May 21, 2014 hospital follow up [facility] May 03, 2015 Refill [facility] Jul 09, 2015 Refill and also NST work up [facility] Jul 27, 2015 Unknown [facility] Jul 09, 2013 LUMP IN BREAST [facility] Aug 05, 2013 CHEST CONGESTION [facility] Oct 02, 2013 Unknown [facility] Dec 08, 2015 Refill [facility] Aug 17, 2015 Refill [facility] Aug 19, 2015 Unknown [facility] February 01, 2016 echo/carotid/arterial dopplers [place] Dee [place] December 30, 2015 hosp fu [facility] Dec 08, 2015 medication [facility] January 05, 2016 Problems Problem Type Condition ICD-9 Code Onset Dates Condition Status Problem Essential (primary) hypertension I10 Active Problem Vitamin D deficiency E55.9 Active Problem Coronary atherosclerosis of [place] coronary artery I25.10 Active Problem Normal body mass index Z78.9 Active Problem History of CVA (cerebrovascular accident) Z86.73 Active Problem Tobacco use Z72.0 Active Problem Transient cerebral ischemia G45.9 Active Problem HTN (hypertension), benign 401.1 Active Problem History of [place] (myocardial infarction) I25.2 Active Problem Smoker F17.200 Active Problem Grade III hemorrhoids K64.2 Active Problem Diverticulitis of large intestine without perforation or abscess without bleeding K57.32 Active Problem Mixed hyperlipidemia E78.2 Active Medications Medication Code System Code Instructions Start Date End Date Status Dosage Plavix [facility] [address]-50 75 mg Orally Once a day Active 1 tablet Social History Social History Element Qualifiers Date Reported children . 1 Dec 09, 2015 Tobacco Use: . Are you a: current smoker 15 cigs a day Dec 09, 2015 Marital Status: . Dec 09, 2015 Do you drink alcohol? . 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
--- OUTSIDE RECORDS SUMMARY | 2019-02-10 20:29 | XMS REPORT ---
Author Author Serene Keller [facility] [employer] Address Unknown Phone Unavailable Care Team Providers Care Project Manager Industrial Name Role Phone Serene Keller CP Unavailable Allergies, Adverse Reactions, Alerts Substance Reaction Event Type Ativan Info Not Available Drug Allergy Problems Problem Type Condition Code Onset Dates Condition Status Assessment Colon cancer screening Z12.11 Active Problem Essential (primary) hypertension I10 Active Assessment Physical exam Z00.00 Active Problem Tobacco use Z72.0 Active Assessment Dense breast R92.2 Active Problem Normal body mass index Z78.9 Active Assessment Menopausal state N95.1 Active Assessment Osteopenia of spine M85.88 Active Problem Menopausal state N95.1 Active Problem Coronary atherosclerosis of [place] coronary artery I25.10 Active Problem Mixed hyperlipidemia E78.2 Active Problem Smoker F17.200 Active Problem Vitamin D deficiency E55.9 Active Assessment Tobacco use Z72.0 Active Assessment Smoker F17.200 Active Assessment BMI 21.0-21.9, adult Z68.21 Active Assessment Normal body mass index Z78.9 Active Assessment Breast cancer screening Z12.31 Active Assessment Vitamin D deficiency E55.9 Active Assessment Cataract of left eye, unspecified cataract type H26.9 Active Assessment Essential (primary) hypertension I10 Active Assessment Mixed hyperlipidemia E78.2 Active Assessment Coronary atherosclerosis of [place] coronary artery I25.10 Active Medications Medication Code System Code Instructions Start Date End Date Status Dosage Nitroglycerin [facility][NOTE 3] 87059029950 0.4 MG Sublingual Active not defined Metoprolol Succinate NDC 0 100 mg Orally once daily Jun 13, 2017 Jun 12, 2018 Active 1 tablet Plavix NDC 95249597343 75 MG Orally once a day Active 1 tablet Tenormin NDC 59631223352 50 mg Orally twice a day (bid) February 03, 2013 Active 1 tablet Vital Signs Date/Time: Dec 14, 2017 BMI 21.80 Index Weight 131 lbs Height 65 in Cardiac Monitoring Heart Rate 68 /min Blood Pressure Diastolic 64 mm Hg Blood Pressure Systolic 108 mm Hg Results Name Result Date Reference Range Unit Abnormality Flag Chest 2 views- Xray BONE DENSITY Summary Purpose [employer] Submission
--- OUTSIDE RECORDS SUMMARY | 2019-02-10 20:30 | XMS REPORT ---
Author Author Denise Sullivan Organization [employer] Address Unknown Phone Unavailable Care Team Providers Care Metalizer Name Role Phone Denise Sullivan CP Unavailable Allergies, Adverse Reactions, Alerts Substance Reaction Event Type Ativan Info Not Available Drug Allergy Problems Problem Type Condition Code Onset Dates Condition Status Problem Mixed hyperlipidemia E78.2 Active Problem Coronary atherosclerosis of [place] coronary artery I25.10 Active Problem Essential (primary) hypertension I10 Active Problem Normal body mass index Z78.9 Active Assessment Numbness in left leg R20.0 Active Problem History of CVA (cerebrovascular accident) Z86.73 Active Problem Tobacco use Z72.0 Active Problem Transient cerebral ischemia G45.9 Active Problem Vitamin D deficiency E55.9 Active Problem History of [place] (myocardial infarction) I25.2 Active Problem Smoker F17.200 Active Assessment Coronary atherosclerosis of [place] coronary artery I25.10 Active Assessment Vitamin D deficiency E55.9 Active Assessment Chest pressure R07.89 Active Assessment Tobacco use Z72.0 Active Assessment History of CVA (cerebrovascular accident) Z86.73 Active Assessment Neck pain M54.2 Active Assessment Mixed hyperlipidemia E78.2 Active Problem Grade III hemorrhoids K64.2 Active Assessment Essential (primary) hypertension I10 Active Problem Diverticulitis of large intestine without perforation or abscess without bleeding K57.32 Active Medications Medication Code System Code Instructions Start Date End Date Status Dosage Nitroglycerin [facility] [address]-59 0.4 MG Sublingual Active not defined Plavix [facility] [address]-02 75 MG Orally Once a day LAST REFILL, MUST SEE DOCTOR Active 1 tablet Tenormin [facility] [address]-51 50 mg Orally twice a day (bid) February 03, 2013 Active 1 tablet Vital Signs Date/Time: January 29, 2017 BMI 22.80 Index Weight 137 lbs Height 65 in Cardiac Monitoring Heart Rate 76 /min Blood Pressure Diastolic 68 mm Hg Blood Pressure Systolic 140 mm Hg Results No Known Results Summary Purpose [employer] Submission
--- OUTSIDE RECORDS SUMMARY | 2019-02-10 20:30 | XMS REPORT ---
Author Author [facility] Address Unknown Phone Unavailable Care Team Providers Care Manager Trade Name Role Phone Terri EDWARD Unavailable Unavailable Problems This patient has no known problems. Allergies, Adverse Reactions, Alerts This patient has no known allergies or adverse reactions. Medications This patient has no known medications. Results Test Description Test Time Test Comments Text Results Atomic Results Result Comments CT BRAIN WO 2019-02-10 17:30:00 [place] [address] Patient Name: BRANDY LYNN MR #: [id number] : 1960 Age/Sex: 58/F Req #: [id number] Adm Physician: Ordered by: LEANNA EDWARD MD Report #: [id number] Location: ER Room/Bed: Procedure: [id number] CT/CT BRAIN WO Exam Date: Exam Time: REPORT STATUS: Signed Exam: Head CT without contrast Indication: Right-sided weakness Ankit risons: None Technique: Axial images were obtained from the skull base to the vertex. Coronal and sagittal images reconstructed from the axial data. Dose modulation, iterative reconstruction, and/or weight based adjustment of the mA/kV was utilized to reduce the radiation dose to as low as reasonably achievable. Intravenous contrast: None Findings: Scalp/skull: No abnormalities. Extra-axial spaces: No masses. No fluid collections. Brain sulci: Not effaced. Ventricles: Focally dilated left frontal horn. Otherwise, normal size and configuration. Parenchyma: Focal hypodensity involving involving the left subinsular region, lentiform nucleus, and frontal doty radiata. No intracranial hemorrhage. Sellar/suprasellar region: No abnormalities. Craniocervical junction: Patent foramen magnum. No Chiari one malformation. Incidental findings: Atherosclerotic calcifications in the carotid siphons . Suspect sequela of prior left mastoidectomy. Impression: 1. No intracranial hemorrhage, evidence of acute territorial vascular insult, or hydrocephalus. 2. 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 A preliminary report was provided by Dr. Jules on 02/10/2019 5:39 PM. Signed by: Lillian Jules MD on 02/10/2019 5:40 PM Dictated By: LILLIAN JULES MD 39 Transcribed By: SRINI on 02/10/191739 COPY TO: LEANNA EDWARD MD
[2019-02-10 21:21] VITALS: BP 177/79
[2019-02-10] MEDS: CLOPIDOGREL BISULFATE 75 MG TAB PO SCH (22:54)
[2019-02-10] MEDS: LISINOPRIL 10 MG TAB PO SCH (22:54)
[2019-02-10] MEDS: SODIUM CHLORIDE 0.9% 1000ML 1,000 ML IV SCH (22:54)
[2019-02-10] MEDS: METOPROLOL TARTRATE 25 MG TAB PO SCH (22:54)
[2019-02-11] VITALS (7 sets, daily range): BP systolic 139–157; BP diastolic 74–93
[2019-02-11 05:02] LABS: CREATINE KINASE MB 0.3 ng/mL (0-5.0)
[2019-02-11 05:37] LABS: BASOPHILS # (AUTO) 0.1 (0.0-0.1); BASOPHILS % 0.7 % (0.0-1.0); EOSINOPHILS # (AUTO) 0.2 (0.0-0.4); EOSINOPHILS % 2.7 % (0.0-6.0); HEMATOCRIT 38.7 % (34.2-44.1); HEMOGLOBIN 12.8 g/dL (12.0-16.0); LYMPHOCYTES # (AUTO) 2.7 (1.0-3.2); LYMPHOCYTES % 33.6 % (18.0-39.1); MEAN CORPUSCULAR HEMOGLOBIN 32.4 pg (28-32); MEAN CORPUSCULAR HGB CONC 33.1 g/dL (31-35); MONOCYTES # (AUTO) 0.6 (0.2-0.8); MONOCYTES % 6.8 % (4.4-11.3); NEUTROPHILS # (AUTO) 4.5 (2.1-6.9); NEUTROPHILS % 55.8 % (38.7-80.0); PLATELET COUNT 249 x10e3/uL (140-360); RED BLOOD COUNT 3.95 x10e6/uL (3.6-5.1); RED CELL DISTRIBUTION WIDTH 13.2 % (11.7-14.4)
[2019-02-11] MEDS: SODIUM CHLORIDE 0.9% 1000ML 1,000 ML IV SCH ×3 (05:44→21:15)
--- NOTE | 2019-02-11 05:45 | NUR ---
PT IS TRANSFERRED FROM ER .PT IS AOX3 .SLIGHT LEFT SIDED WEAKNESS .RESPIRATIONS ARE EVEN AND UNLABORED DENIES PAIN .SKIN WARM AND DRY TO TOUCH .LEFT AC 18 G NS AT125 CC/HR INFUSING.CALL LIGHT WITH IN REACH CONTINUE TO MONITOR
[2019-02-11 05:57] LABS: CREATINE KINASE MB 0.3 ng/mL (0-5.0)
[2019-02-11 06:24] LABS: ANION GAP 11.6 mmol/L (8-16); BLOOD UREA NITROGEN 13 mg/dL (7-26); BUN/CREATININE RATIO 17 (6-25); CALCIUM 8.7 mg/dL (8.4-10.2); CARBON DIOXIDE 21 mmol/L (22-29); CHLORIDE 109 mmol/L (98-107); CHOL/HDL RATIO 3.6 (3.0-3.6); CHOLESTEROL 192 MD/DL (0-199); CREATININE, SERUM 0.76 mg/dL (0.57-1.11); EST GLOMERULAR FILTRATION RATE > 60 ML/MIN (60-); GLUCOSE 103 mg/dL (74-118); HDL CHOLESTEROL 53 MG/DL (40-60); LDL CHOLESTEROL 112 MG/DL (60-130); POTASSIUM 3.6 mmol/L (3.5-5.1); SODIUM 138 mmol/L (136-145); TRIGLYCERIDES 137 MG/DL (0-149)
--- NOTE | 2019-02-11 07:25 | NUR ---
PATIENT IN STABLE CONDITION WITH NO S/S OF RESPIRATORY DISTRESS. NO PAIN VOICED. TELEMETRY APPLIED. PATIENT C/O CURRENT RIGHT SIDED WEAKNESS WELL LEFT SIDED WEAKNESS. IV FLUIDS INFUSING. BED ALARM ON. CALL LIGHT IS WITHIN REACH, PATIENT INSTRUCTED TO CALL FOR ASSISTANCE NEEDED.
[2019-02-11] MEDS: CLOPIDOGREL BISULFATE 75 MG TAB PO SCH (08:25)
[2019-02-11] MEDS: ASPIRIN 81 MG ENTERIC COATED PO SCH (08:25)
[2019-02-11] MEDS: METOPROLOL TARTRATE 25 MG TAB PO SCH ×2 (08:25→21:15)
[2019-02-11] MEDS: LISINOPRIL 10 MG TAB PO SCH (08:25)
--- NOTE | 2019-02-11 08:59 | NUR ---
RECEIVED A CALL FROM MRI REGARDING ORDER TO DC TELEMETRY TO OBTAIN MRI. CALL PLACED OUT TO DR. MEDINA REGARDING TELEMETRY DC ORDER FOR MRI - AWAITING CALLBACK.
[2019-02-11] MEDS ORDERED: ONDANSETRON HCL 4 MG ORAL DISINTEGRATING TAB PO PRN (10:45)
--- NOTE | 2019-02-11 12:40 | Diagnostic Imaging Report ---
EXAMINATION: MRI of the brain without contrast. HISTORY: Right upper extremity weakness and paresthesias, impaired speech, evaluate for acute stroke COMPARISON: Head CT 02/10/2019 TECHNIQUE: Sagittal T2; axial DWI, T2, FLAIR, T1-IR, T2 gradient echo; coronal FLAIR. IMAGE QUALITY: Magnetic susceptibility artifact from the metallic dental fillings is overlying the right side of the face and head. FINDINGS: Parenchyma: 1. Small focal area of FLAIR hyperintensity and restricted diffusion in the left parietal deep white matter likely corresponds to a small acute ischemic infarct. 2. Cavitating encephalomalacia in the left striatum nucleus (superior putamen/head of the caudate nucleus) and the left overlying frontal deep white matter, with compensatory dilatation of the left frontal horn, likely the sequela from prior infarction. 3. Few scattered matter T2 hyperintense foci, nonspecific chronic microvascular ischemic changes. 4. FLAIR and T1 hyperintensity overlying the right medial temporal lobe, right thalamus and occipitoparietal region is artifactual. 5. No mass or hemorrhage. Skull: Unremarkable. Vessels: Expected flow voids present in the major arteries and dural sinuses. Extra-axial spaces: No abnormal signal intensity or mass effect. Brain volume: Within normal limits for age. Ventricles: No hydrocephalus or displacement. Foramen magnum: Unremarkable. Sella: Unremarkable. Paranasal / mastoid sinuses: No significant inflammatory disease. IMPRESSION: 1. Small acute ischemic lacunar infarct in the left parietal doty radiata. 2. Chronic infarct in the left striatum nucleus and overlying deep white matter. 3. Mild chronic microvascular ischemic changes. Signed by: Dr. Magalie Irvin M.D. on 02/11/2019 12:36 PM
--- NOTE | 2019-02-11 14:21 | NUR ---
Nutrition Intervention Note RD Recommendation(s) for Physician: -Continue cardiac diet as ordered -Rec Ensure BID to promote protein-calorie intake The patient meets criteria for MODERATE protein-calorie malnutrition. Plan of Care: RD following, monitoring for tolerance and adequacy, ONS rec Nutrition reason for involvement: Nutrition Risk Trigger MST RD Assessment 02/11 - Chart reviewed. 58yo F, who was admitted for CVA. Visited pt in the room. Per family, pt has had poor appetite due to stress for several years. Family stated she wasnt eating or drinking; if she eats, she only eats once a day. Pt has lost ~18lbs in the last 6 months. Pt has moderate signs of muscle and fat loss per observation. Pt denied any nausea or vomiting. Pt complained of some chewing difficulty of the right side and R hand weakness. RD obtained food preferences and entered into HT. No swallowing difficulty noted. Pt was unsure if she has DM and not taking any diabetic meds. Communicated rec above with family; family was agreeable with plan. Paged Dr. Cárdenas at [phone]. Will continue to monitor and follow. Principal Problems/Diagnoses: Acute L hemispheric CVA PMH: No H&P in chart GI: abdomen soft, non-tender, LBM 02/10 Skin: no pressure wound noted Labs: (02/11) reviewed Meds: lisinopril, plavix, NaCl Ht: 65in Wt: 129lb BMI: 21.5kg/m2 IBW: 125lb Malnutrition Evaluation (02/11) The patient meets criteria for MODERATE protein-calorie malnutrition. Energy intake: <75% of estimated energy requirements for >3 months Weight loss: >10% in 6 months (Chronic) Fat loss: Moderate clavicle protrusion Muscle loss: Moderate temporal depression Supporting Evidence: Fluid accumulation: unable to evaluate Functional Status: no changes Nutrition Prescription (Diet Order): cardiac diet Estimated Nutritional Needs: Calories: 1425 1995kcal (25-35kcal/kg/d) Weight used: UBW Protein: 57 86g(1-1.5g/kg/d) Weight used: UBW Diet Adequacy: Not meeting calorie needs, Not meeting protein needs Diet Education Needs Assessment: Diet education indicated, but patient not appropriate for education at this time. Nutrition Care Level: Nutrition Diagnosis: Malnutrition related to stressful lifestyle as evidenced by pt reported weight loss and poor appetite for over 6 months. Goal: Patient will meet 75-100% of estimated needs by follow up Progress: N/A Interventions: Heart healthy diet, commercial beverage Monitoring/Evaluation: Total energy intake, Total protein intake, Modified diet, Liquid supplement, Weight change Signed: Ivette De Luna MS, RD, LD
[2019-02-11 14:32] LABS: CREATINE KINASE MB 0.5 ng/mL (0-5.0)
[2019-02-11 15:57] LABS: CLARITY,URINE CLEAR (CLEAR); COLOR,URINE YELLOW (YELLOW); LEUKOCYTE ESTERASE ,URINE NEGATIVE (NEGATIVE); NITRITE,URINE NEGATIVE (NEGATIVE)
[2019-02-11 15:58] LABS: AMPHETAMINES SCREEN,URINE NEGATIVE (NEGATIVE); BENZODIAZEPINES SCREEN,URINE POSITIVE (NEGATIVE); BILIRUBIN,URINE NEGATIVE (NEGATIVE); KETONES,URINE NEGATIVE (NEGATIVE); PHENCYCLIDINE SCREEN,URINE NEGATIVE (NEGATIVE); PROTEIN,URINE DIPSTICK NEGATIVE (NEGATIVE); URINE UROBILINOGEN 0.2 mg/dL (0.2 - 1)
[2019-02-11 16:07] LABS: BACTERIA,URINE FEW /HPF; EPITHELIAL CELLS,URINE MODERATE /LPF; MUCUS,URINE MODERATE (RARE)
--- NOTE | 2019-02-11 16:45 | NUR ---
Visit made by the Spiritual Care Department Pastoral Visitor, Daxa Fernandez. PV provided pastoral presence, prayer, hospitality, and supportive listening. Pastoral Visitor informed pt/family of the scope of Truckload Owner Operator Services and availability. TATIANA DIAS Sandstone Inspector Repairer Spiritual Care Department O: [phone] Pager: [phone] ([phone] number calling from)
--- NOTE | 2019-02-11 17:08 | NUR ---
GAVE PACKET OF INFORMATION WITH COMMUNITY RESOURCES FOR ASSISTANCE WITH LOW TO NO INCOME TO PATIENT. RESOURCES THAT PATIENT MAY BE ABLE TO FOLLOW UP UPON DISCHARGE. PT EDUCATED ON EACH RESOURCE AND UNDERSTANDING HOW TO FOLLOW UP TO SEE IF QUALIFIED FOR EACH RESOURCE.
[2019-02-11] MEDS ORDERED: LISINOPRIL10 MG PO (18:17)
[2019-02-11] MEDS ORDERED: ATENOLOL50 MG PO (18:17)
[2019-02-11] MEDS ORDERED: ASPIRIN81 MG PO (18:17)
[2019-02-11] MEDS ORDERED: METOPROLOL TART50 MG PO (18:17)
[2019-02-11] MEDS ORDERED: PLAVIX75 MG PO (18:17)
--- NOTE | 2019-02-11 18:51 | NUR ---
PATIENT IN STABLE CONDITION WITH NO S/S OF RESPIRATORY DISTRESS. NO PAIN VOICED. IV FLUIDS INFUSING. TELEMETRY APPLIED. BED ALARM ON. CALL LIGHT IS WITHIN REACH, PATIENT INSTRUCTED TO CALL FOR ASSISTANCE NEEDED. REPORT GIVEN TO ONCOMING NURSE.
[2019-02-11] MEDS ORDERED: SIMVASTATIN 20 MG TAB PO SCH (21:00)
[2019-02-12] VITALS: BP 178/72
[2019-02-12 00:29] VITALS: BP 154/86
--- NOTE | 2019-02-12 01:16 | Consultation ---
DATE OF CONSULTATION: 02/11/2019 Neurology Consult Note HISTORY OF PRESENT ILLNESS: Ms. Angel is a 58-year-old right-hand dominant woman with past medical history significant for hypertension, coronary artery disease with two prior myocardial infarctions, and multiple prior strokes, admitted to [facility] on February 10, 2019 with symptoms of a stroke. Between 1500 and 1530 hours on the day of admission, the patient experienced the sudden onset of dysarthria, right facial droop, weakness and impaired coordination of the right hand and arm, poor balance and gait impairment, and dizziness which is further described as lightheadedness. Ms. Angel does not report a visual field cut or other disturbance, aphasia, weakness of the right leg, numbness, or confusion associated with the above symptoms. A short time later, the patient's best friend arrived at her home. When Ms. Angel' best friend looked at the patient, she noted the right facial droop and said to Ms. Angel, "she look like her having a stroke." Ms. Angel was then brought to the emergency center at [facility] for further evaluation of her symptoms. Upon arrival in the emergency center, the patient was afebrile with a blood pressure of 162/82 mmHg and a pulse of 62 beats per minute. Prior to being examined by the emergency center physician, Ms. Angel symptoms began to improve. At the time of the emergency center physician's neurological examination, the patient was noted to have mild right-sided facial weakness as well as mild abnormality on finger-nose testing of the right arm. Since the patient's symptoms seem to be improving, Ms. Angel was thought to be a poor candidate for treatment with intravenous thrombolytics. The patient was admitted to the hospital under observation status for further evaluation and treatment of her symptoms. Overnight, Ms. Angel reports worsening of the symptoms described above. Ms. Angel has had 2 heart attacks and 5 strokes. The first stroke occurred at the age of 38 years. The only residual deficits from the prior strokes is blindness in the left eye. Following her first heart attack in either 2008 or 2009, the patient was prescribed aspirin 81 mg by mouth daily and Plavix 75 mg by mouth daily for vascular prophylaxis. Ms. Angel reports she has taken both medications faithfully for at least one month. However, in the past, the patient has been known to miss multiple doses of these medications every week. REVIEW OF SYSTEMS: Dysarthria, right facial weakness, weakness of the right arm and hand, impairment of balance and gait, dizziness which is further described as lightheadedness. Otherwise, a 12-point review of systems is negative. PAST MEDICAL HISTORY: Hypertension, coronary artery disease with two prior myocardial infarctions, multiple prior strokes with residual deficit of vision loss in the left eye. PAST SURGICAL HISTORY: Total hysterectomy, cholecystectomy, section, tonsillectomy, and bilateral tubal ligation. PAST HOSPITALIZATIONS: Surgeries/procedures as listed, multiple hospitalizations for strokes or heart attacks, one inpatient psychiatric admission for a "nervous breakdown." FAMILY MEDICAL HISTORY: The patient's paternal and maternal grandparents are . The medical history of the grandfathers is unknown. The paternal grandmother is from a stroke. The maternal grandmother is from an unknown cancer. The patient's father is . He had a medical history of coronary artery disease with myocardial infarction, multiple strokes, parkinsonism, and progressive aphasia. The patient's mother is from metastatic melanoma. Ms. Angel has two siblings, a brother and a sister, both of whom were living. The sister has a prior history of valvular heart disease. The brother has a history of coronary artery disease with a recent myocardial infarction. Ms. Angel has one daughter, who is alive and healthy. SOCIAL HISTORY: The patient is . She is not employed at present. The patient does report current tobacco use. She has smoked one pack of cigarettes per day for the last 45 years. The patient reports social alcohol use. Ms. Angel does not report current or prior recreational drug use. HOME MEDICATIONS: Aspirin 81 mg by mouth daily, Plavix 75 mg by mouth daily, atenolol 75 mg by mouth daily, metoprolol 100 mg by mouth daily, and lisinopril 100 mg by mouth daily. HOSPITAL MEDICATIONS: Aspirin, Plavix, hydralazine, lisinopril, metoprolol, and Zofran. ALLERGIES: PROMETHAZINE. NO KNOWN FOOD ALLERGIES. NO KNOWN ALLERGIES TO LATEX. NO KNOWN ALLERGIES TO IODINE OR OTHER CONTRAST MATERIALS. PHYSICAL EXAMINATION: VITAL SIGNS: Height 65 inches, weight 129 pounds, BMI 21.5 kg/m2, blood pressure 154/86 mmHg, pulse 53 beats per minute, respiratory rate 18 breaths per minute, and oxygen saturation 99% on room air. GENERAL: The patient is awake and alert, does not appear distressed. HEENT: Normocephalic, atraumatic. Pupils are equal, round, and reactive to light. Moist mucous membranes. NECK: Supple. No appreciable thyromegaly. No appreciable carotid bruits. CARDIOVASCULAR: S1, S2, regular rate and rhythm. No murmurs, rubs, or gallops. RESPIRATORY: Clear to auscultation bilaterally. No wheezes, rhonchi, or rales. EXTREMITIES: The skin is warm and dry. No clubbing, cyanosis, or edema. The posterior tibial and dorsalis pedis pulses are 2+ and symmetric. SKIN: No rashes or lesions. NEUROLOGIC: Memory/Attention: The patient is awake and alert, oriented to person, place, time, and situation. Cranial Nerves: Cranial nerve I - not tested. Cranial nerves II, III, IV, and - pupils are equal and round, react briskly to light (from 4 mm to 2 mm). Extraocular movements intact. No nystagmus. Cranial nerve V - sensation to light touch is intact in the bilateral V1 through V3 distributions. Strength of the temporalis and masseter muscles are within normal limits. Cranial nerve VII - the face is asymmetric on the right as are all facial movements. There is mild right central facial weakness. Cranial nerve VIII - hearing is diminished to finger rub on the left. Cranial nerves IX, X - the soft palate elevates equally and symmetrically. Cranial nerve XI - normal strength of the bilateral sternocleidomastoid and trapezius muscles. Cranial nerve XII - the tongue protrudes midline and moves symmetrically from [id number]-zb-msiy. Strength: Bulk is normal. Strength is 5/5 in the bilateral deltoids, biceps, triceps, wrist flexors and extensors, finger flexors and extensors, intrinsic hand muscles, hip flexors, knee flexors and extensors, ankle dorsiflexion and plantar flexion, and intrinsic foot muscles except as follows: The right arm flexors are 4+/5 and the right arm extensors are 4/5. Tone is normal. DTRs: Deep tendon reflexes are 2+ and symmetric at the triceps, biceps, brachioradialis, patellas, and Achilles. Plantar responses are flexor bilaterally. Sensation: Sensation is intact to light touch in both arms and both legs. Cerebellar: Gtdpgn-oepe-ghbhti and heel-groves movements are intact without dysmetria or other impairment. Gait: Deferred. Speech: Spontaneous speech is normal without appreciable dysarthria or aphasia. Repetition is intact. Involuntary movements: None. Pronator Drift: Right arm. LABORATORY DATA: A comprehensive metabolic panel is unremarkable. Cardiac enzymes are negative x4. Total cholesterol 192, triglycerides 137, LDL cholesterol 112, and HDL cholesterol 53. The CBC with differential and platelets are unremarkable. A coagulation profile is within normal limits. A urinalysis is unremarkable. A urine drug screen was positive for opiates, benzodiazepines, and cannabinoids. DIAGNOSTIC STUDIES: Electrocardiogram on 02/10/2019: Normal sinus rhythm at [address] of the brain without contrast on 02/10/2019: On my review, there is no evidence of recent large territorial ischemia, hemorrhage, mass, or mass effect. A chronic lacunar infarct is seen in the left subinsular region. Cerebral volumes are appropriate for age. Their findings compatible with mild chronic small vessel ischemic disease. Echocardiogram on 02/11/2019: Ejection fraction 40% to 45%. Trace to mild mitral regurgitation. Bilateral carotid artery ultrasound with Doppler on 02/11/2019: There is no atherosclerosis in either carotid artery system. Flow is antegrade in the bilateral vertebral arteries. MRI of the brain without contrast on 02/11/2019: On my review, there is an acute lacunar stroke in the left parietal doty radiata. There is a chronic lacunar stroke in the left striatum nucleus and overlying deep white matter. Cerebral volumes are appropriate for age. There are scattered nonspecific T2/FLAIR hyperintense foci in the supratentorial white matter compatible with mild chronic small vessel ischemic disease. ASSESSMENT AND PLAN: Ms. Angel is a 58-year-old jueep-onoq-xgzukrdo woman with multiple vascular risk factors, admitted to [facility] on February 10, 2019, with an acute ischemic stroke in the subcortical left middle cerebral artery distribution. The patient's neurological examination is significant for mild right facial weakness as well as mild weakness of the right hand and arm with positive pronator drift of the right hand and arm. The patient's laboratory data and other diagnostic studies have been reviewed and are documented above. RECOMMENDATIONS: Are as follows: 1. A hemoglobin A1c will be ordered to complete stroke evaluation. 2. Ms. Angel experienced an ischemic stroke, while on dual antiplatelet therapy. Failure of dual anti-platelet therapy to prevent cardiovascular event suggests Ms. Angel should be treated with a more potent medication (i.e. a blood thinner). However, as the patient is unemployed and has no health insurance, she is unable to afford the newer anticoagulant medications. While Ms. Angel may be able to afford Coumadin, it is probable she would not be able to afford the multiple followup appointments and lab visits required when one is treated with Coumadin. 3. Therefore, treatment with Plavix 75 mg by mouth daily and aspirin 81 mg by mouth daily for stroke prophylaxis will be continued. However, the patient is encouraged to follow up with bricklayer paving brick as soon as possible to discuss treatment with anticoagulant medication for stroke prophylaxis. 4. The patient's goal blood pressure at discharge is less than 140/90 mmHg. At present, the patient's blood pressures are at goal. Continue current antihypertensive medications. Monitor vital signs per unit protocol and adjust medications accordingly. 5. The patient's goal total cholesterol is less than 200 with an LDL of less than 70. Ms. Angel will be prescribed a statin medication to bring her LDL to goal. The patient endorses prior adverse reactions to statin medication, so Ms. Angel will be prescribed a low dose of simvastatin for treatment of her dyslipidemia. 6. The patient's goal hemoglobin A1c is less than 7.0. Follow up the results of the hemoglobin A1c. Tight glycemic control is recommended, while the patient is in the hospital. 7. The patient has no speech or cognitive deficits, so speech therapy evaluation will be deferred. Continue with physical therapy as recommended. 8. GI prophylaxis with Pepcid 20 mg by mouth twice daily with meals. DVT prophylaxis with Lovenox 40 mg subcutaneously daily. 9. Smoking cessation counseling was provided to the patient. 10. Defer treatment of the remaining medical comorbidities to the primary and other services. DISPOSITION: Anticipate discharge to home with outpatient occupational therapy in 1 to 2 days. Thank you for this consultation. I will continue to follow this patient, while she remains in the hospital. TIME SPENT: 70 minutes. Madiha Bustillos MD CP/LAURA /[id number] LOIDA
[2019-02-12 04:00] VITALS: BP 159/72
[2019-02-12 06:45] LABS: HEMATOCRIT 38.5 % (34.2-44.1); HEMOGLOBIN 12.9 g/dL (12.0-16.0); MEAN CORPUSCULAR HEMOGLOBIN 32.2 pg (28-32); MEAN CORPUSCULAR HGB CONC 33.5 g/dL (31-35); PLATELET COUNT 231 x10e3/uL (140-360); RED BLOOD COUNT 4.01 x10e6/uL (3.6-5.1); RED CELL DISTRIBUTION WIDTH 12.9 % (11.7-14.4)
[2019-02-12] MEDS: SODIUM CHLORIDE 0.9% 1000ML 1,000 ML IV SCH (06:47)
[2019-02-12 06:56] LABS: ANION GAP 9.8 mmol/L (8-16); BLOOD UREA NITROGEN 8 mg/dL (7-26); BUN/CREATININE RATIO 11 (6-25); CALCIUM 8.6 mg/dL (8.4-10.2); CARBON DIOXIDE 21 mmol/L (22-29); CHLORIDE 113 mmol/L (98-107); EST GLOMERULAR FILTRATION RATE > 60 ML/MIN (60-); GLUCOSE 98 mg/dL (74-118); POTASSIUM 3.8 mmol/L (3.5-5.1); SODIUM 140 mmol/L (136-145)
[2019-02-12] MEDS ORDERED: FAMOTIDINE 20 MG TAB PO SCH (07:30)
--- NOTE | 2019-02-12 07:30 | NUR ---
REC'D PT AAOX3, NO S/S OF DISTRESS, BED IN LOWEST POSITION, SIDE RAILS UP X2, AND CALL LIGHT WITHIN REACH.
[2019-02-12 08:08] VITALS: BP 161/75
[2019-02-12] MEDS: ASPIRIN 81 MG ENTERIC COATED PO SCH (08:54)
[2019-02-12] MEDS: CLOPIDOGREL BISULFATE 75 MG TAB PO SCH (08:54)
[2019-02-12] MEDS: LISINOPRIL 10 MG TAB PO SCH (08:57)
[2019-02-12] MEDS: METOPROLOL TARTRATE 25 MG TAB PO SCH (08:57)
--- NOTE | 2019-02-12 09:30 | NUR ---
ORDER REC'D FOR DISCHARGE. NOTIFIED PT ABOUT DISCHARGE.
[2019-02-12 10:45] VITALS: BP 161/75
[2019-02-12] MEDS ORDERED: LISINOPRIL10 MG PO (11:02)
[2019-02-12] MEDS ORDERED: ZOCOR20 MG PO (11:02)
--- NOTE | 2019-02-12 11:35 | NUR ---
PT HAS BEEN DISCHARGED. DISCHARGE PAPERS SIGNED. [facility] ASSISTED PATIENT DOWNSTAIRS.
--- NOTE | 2019-02-12 11:35 | NUR ---
PT HAS BEEN DISCHARGED HOME AND TRANSFERRED DOWNSTAIRS BY [facility]. IV HAS BEEN D/C. NO REDNESS, SWELLING, OR SIGNS OF INFECTION. APPLIED GAUZE AND TAPE TO SITE. NO S/S OF DISTRESS NOTED.
--- NOTE | 2019-02-12 14:57 | Diagnostic Imaging Report ---
EXAM: Modified barium swallow with Speech Pathologist INDICATION: ^Follow up from bedside swallow exam ^[id number] ^1050 COMPARISON: None available. RADIATION DOSE: Fluoroscopy Time: 0.6 min Dose (Kerma) Area Product: 0.55 Gycm2 Air Kerma (AK) value has been reviewed. It is below the limits set by the Radiation Protocol Committee (RPC) committee. FINDINGS: See impression IMPRESSION: No evidence of penetration or aspiration. Please see speech pathology report for detailed description and recommendations. Signed by: Dr. Jamal Grewal M.D. on 02/12/2019 2:53 PM
[2019-02-12] MEDS ORDERED: ENOXAPARIN SOD INJ 40 MG/0.4 ML SYR SC SCH (17:00)
--- NOTE | 2019-02-13 05:53 | Discharge Summary ---
HOSPITAL COURSE: Ms. Angel is a 58-year-old female with history of coronary artery disease, status post DE x2; history of CVA x4, hypertension, and tobacco user, who came to the emergency room complaining of right arm numbness and facial numbness on the right side. MRI shows that she has an acute CVA. The patient has been on aspirin and Plavix. At the present time, she does not have any insurance. She cannot afford any expensive anticoagulation, as well as Coumadin is affordable, that required followups and having blood work checked. PHYSICAL EXAMINATION: GENERAL: Today, she is awake and alert. VITAL SIGNS: Temperature is 97.7 and blood pressure is 161/75. HEART: Regular rate. LUNGS: Clear to auscultation. ABDOMEN: Soft. NEUROLOGIC: She still have weakness in the right arm and deviation of the face to the left. LABORATORY DATA: On the blood work; potassium 3.8, creatinine 0.70, and glucose 98. White count 7.25, hemoglobin 12.9, and hematocrit 38.5. MRI of the brain shows small acute ischemic lacunar infarct in the left parietal doty radiata. ASSESSMENT: 1. Acute cerebrovascular accident of a left striatus nucleus. 2. History of stroke x4. 3. Coronary artery disease, status post stent. 4. Hypertension. 5. Tobacco abuse. 6. Hyperlipidemia. PLAN: At the present time, the patient was seen by a neurologist. Once the patient gets insurance, she needs to see her PCP and get treatment and anticoagulation information to prevent any further stroke. It is very important that she quit smoking. All this was discussed with her and family at bedside. All questions were answered to satisfaction. We are going to discharge her on statins and blood pressure medications. She is to call me or come back to the emergency room if any recurrent problem. MD APRIL Marcelo/LAURA /[id number]
== END 2019-02-12 11:37 | disposition home or self-care (01) ==
LOC: ER 16:52 → ERHOLD 20:24 → MED/SURG3 23:58
PROVIDERS: ADMIT Internal Medicine; ATTEND Internal Medicine
DX: I63.512 Cerebral infarction due to unspecified occlusion or stenosis of left middle cerebral artery (principal); R29.810 Facial weakness; G81.91 Hemiplegia, unspecified affecting right dominant side; I25.10 Atherosclerotic heart disease of native coronary artery without angina pectoris; I10 Essential (primary) hypertension; F17.210 Nicotine dependence, cigarettes, uncomplicated; E78.5 Hyperlipidemia, unspecified; I25.2 Old myocardial infarction; I69.398 Other sequelae of cerebral infarction; H53.8 Other visual disturbances; H54.62 Unqualified visual loss, left eye, normal vision right eye
CPT/HCPCS: 36415 ×2; 70450; 70551; 74230; 80048 ×2; 80053; 80061; 80307; 81001; 82550 ×2; 82553 ×2; 83036; 84484 ×2; 85007; 85025 ×2; 85027; 85610; 85730; 92526; 92611; 93005; 93306; 93880; 97110 ×2; 97116 ×2; 97161; 99284; G0378 ×3; J2060; J7030 ×3